=== PATIENT | female | born 1945 | race Caucasian/White ===

== ENCOUNTER 2017-06-04 06:58 | Inpatient (IN) | payer MEDICARE, BC, MEDICAID ==
[~2017-06-04 06:58] MED LIST: Bupivacaine 0.5%/EPINEPHrine 1:200,000 50 ML MDV ONE; Meropenem 500 MG SDV ONE
[2017-06-04] MEDS ORDERED: Acetaminophen 500 MG Tab PO ONE (07:00)
[2017-06-04] MEDS ORDERED: Rocuronium 50 MG/5 ML Vial ONE (07:01)
[2017-06-04] MEDS ORDERED: Propofol 200 MG/20 ML SDV ONE (07:01)
[2017-06-04] MEDS ORDERED: Succinylcholine/Normal Saline 200 MG/10 ML Syringe ONE (07:01)
[2017-06-04] MEDS ORDERED: Neostigmine Methylsulfate 1 MG/ML 5 ML Syringe ONE (07:01)
[2017-06-04] MEDS ORDERED: Dexamethasone 4 MG/ML SDV ONE (07:01)
[2017-06-04] MEDS ORDERED: Ondansetron 4 MG/2 ML SDV ONE (07:01)
[2017-06-04] MEDS ORDERED: fentaNYL 250 MCG/5 ML SDV ONE (07:02)
[2017-06-04] MEDS: Dextrose 5%-Lactated Ringers 1,000 ML IV SCH ×3 (07:57→18:48)
[2017-06-04] MEDS ORDERED: ROPIVACAINE NERVRT ONE ×3 (08:45)
[2017-06-04] MEDS ORDERED: Ketamine 500 MG/5 ML MDV IV ONE (08:45)
[2017-06-04] MEDS ORDERED: Lidocaine 2% 100 MG/5 ML Syringe IVPUSH ONE (08:45)
[2017-06-04] MEDS ORDERED: ceFAZolin 2 GM in Premix Bag 1 BAG IV ONE (08:45)
[2017-06-04] MEDS ORDERED: EPINEPHRINE NERVRT ONE ×3 (08:45)
[2017-06-04] MEDS ORDERED: SODIUM CHLORIDE 0.9% NERVRT ONE ×3 (08:45)
[2017-06-04] MEDS ORDERED: Meropenem 500 MG SDV IRR ONE (09:50)
[2017-06-04] MEDS ORDERED: fentaNYL 100 MCG/2 ML SDV ONE (10:38)
[2017-06-04] MEDS ORDERED: Naloxone 0.4 MG/ML SDV IVPUSH PRN (10:42)
[2017-06-04] MEDS ORDERED: HYDROmorphone/Normal Saline 15 MG/30 ML PCA IV PRN (10:42)
[2017-06-04] MEDS ORDERED: Naloxone 0.4 MG/ML SDV IV PRN (10:46)
[2017-06-04] MEDS ORDERED: hydrOXYzine HCl 100 MG/2 ML SDV IM ONE (11:13)
[2017-06-04] MEDS ORDERED: Insulin Aspart 100 Units/ML 3 ML Pen SUBCUT ONE (11:15)
[2017-06-04] MEDS: Lidocaine 0.4%/D5W 2 GM/500 ML BAG IV SCH (12:11)
[2017-06-04] MEDS ORDERED: 50% Dextrose in Water 50 ML Syringe IVPUSH PRN (12:32)
[2017-06-04] MEDS ORDERED: Glucagon,Human Recombinant 1 MG Vial IM PRN (12:32)
[2017-06-04] MEDS ORDERED: Glucose Gel 15 GM in 37.5 GM Tube PO PRN (12:32)
[2017-06-04] MEDS ORDERED: HYDROmorphone 2 MG Tab PO PRN (12:37)
[2017-06-04] MEDS ORDERED: Ondansetron 4 MG/2 ML SDV IV PRN (12:49)
[2017-06-04] MEDS: Acetaminophen 325 MG Tab PO SCH ×2 (16:43→21:44)
[2017-06-04] MEDS: ceFAZolin 2 GM in Sodium Chloride 0.9% 50 ML IV SCH (16:43)
[2017-06-04] MEDS: Insulin Aspart 100 Units/ML 3 ML Pen SUBCUT PRN (16:49)
[2017-06-04] MEDS ORDERED: Insulin Aspart 100 Units/ML 3 ML Pen SUBCUT STA (21:06)
[2017-06-04] MEDS: Insulin Detemir 100 Units/ML 3 ML Pen SUBCUT SCH (21:15)
[2017-06-05] MEDS: ceFAZolin 2 GM in Sodium Chloride 0.9% 50 ML IV SCH ×2 (00:57→08:38)
[2017-06-05] MEDS: Dextrose 5%-Lactated Ringers 1,000 ML IV SCH (00:57)
[2017-06-05] MEDS: Lidocaine 0.4%/D5W 2 GM/500 ML BAG IV SCH (00:59)
[2017-06-05] MEDS: Acetaminophen 325 MG Tab PO SCH ×4 (03:41→21:41)
[2017-06-05] MEDS ORDERED: Dextrose 5%-Lactated Ringers 1,000 ML IV SCH (07:45)
[2017-06-05] MEDS: Levothyroxine 100 MCG Tab PO SCH ×2 (08:39→11:50)
[2017-06-05] MEDS: Lisinopril 10 MG Tab PO SCH ×2 (08:39→11:50)
[2017-06-05] MEDS: Pantoprazole 40 MG Tab.CR PO SCH (08:40)
[2017-06-05] MEDS: Insulin Aspart 100 Units/ML 3 ML Pen SUBCUT PRN ×2 (16:35→21:37)
[2017-06-05] MEDS ORDERED: Levothyroxine 100 MCG Tab PO SCH (21:00)
[2017-06-05] MEDS ORDERED: Lisinopril 10 MG Tab PO SCH (21:00)
[2017-06-05] MEDS: Insulin Detemir 100 Units/ML 3 ML Pen SUBCUT SCH (21:38)
[2017-06-06] MEDS: Acetaminophen 325 MG Tab PO SCH ×2 (03:17→10:37)
[2017-06-06] MEDS: Pantoprazole 40 MG Tab.CR PO SCH (07:32)
[2017-06-06 08:09] VITALS: BP 107/31
--- NOTE | 2017-06-09 16:43 | DISCH ---
FINAL DIAGNOSES: 1. Incarcerated umbilical and incarcerated incisional hernias. 2. Extensive intraabdominal adhesions. 3. Type 2 diabetes mellitus. 4. History of arrhythmia, status post pacemaker placement. 5. Hypercholesterolemia. 6. Bariatric surgery status. 7. History of vitamin B deficiency. OPERATIVE PROCEDURE: This was done on 06/04/2017, laparoscopically repair of incarcerated umbilical and incarcerated incisional hernias with mesh and placement of Vicryl mesh to limit recurrent adhesion formation between pelvic and abdominal wall and underlying viscera. HOSPITAL COURSE: This is a 72-year-old female presenting with a fairly acute onset of umbilical hernia. She was quite symptomatic, and after preop evaluation, the patient wished to proceed with repair of this. This was done laparoscopically on the day of admission, did have some incarcerated omentum within it. There was also small incisional hernia related to her previous trocar sites which was also involved with some incarcerated omentum. Both these were repaired with a mesh-type technique via laparoscopic approach. The patient had quite in the way of other adhesions in the pelvis and lower and mid abdomen and given this, Vicryl mesh was placed underneath the new mesh as well as extending down to the pelvic area behind the urinary bladder along the pelvic sidewalls to limit recurrent adhesion formation which would make any subsequent laparotomies or laparoscopies the less likely to be involved with significant adhesions. Postoperatively, the patient did well. Her blood sugars were somewhat problematic but appeared to be stabilizing. The patient will be discharged home with her current medications plus Tylenol as needed for pain. She had received intraoperatively and has had little in the way of pain postoperatively, obviously not requiring any narcotics. The patient will be instructed to measure blood sugars 2 or 3 times a day and bring the log of that blood sugar list to the appointment. She will be following up with Dr. Pérez at [facility] on 06/16/2017 along with the certified lactation educator. At that time, we will see as we get further postoperatively whether or not her blood sugar control has been adequate and make adjustments at that time as needed.
--- NOTE | 2017-06-10 14:14 | PN ---
DATE OF SERVICE: 06/05/2017 The patient has been afebrile with stable vital signs. She has had little bit of pain control issues overnight, but I did start her on DBA MANAGER but has not received much in the way of that DBA MANAGER Dilaudid. The patient is obviously not quite ready to go home yet. She had a quite high blood sugar in night and we will have another one drawn at breakfast this morning. We will make some insulin adjustments as need be. Otherwise we will switch over to oral pain medication. Lidocaine will be scheduled to get off 10:00 am and will saline lock the IV after some oral intake is satisfactory. She will likely be ready for discharge home tomorrow. Prasanna Pérez MD /[id number]
--- NOTE | 2017-06-11 13:09 | OR ---
DATE OF PROCEDURE: 06/04/2017 PREOPERATIVE DIAGNOSIS: Incarcerated umbilical hernia. POSTOPERATIVE DIAGNOSES: 1. Incarcerated umbilical hernia. 2. Small incarcerated incisional hernia. 3. Extensive intra-abdominal adhesions. OPERATIVE PROCEDURES: Diagnostic laparoscopy with: 1. Repair of an incarcerated umbilical hernia with mesh (24186). 2. Repair of incarcerated incisional hernia with mesh ([id number]). 3. Placement of Vicryl mesh to displace viscera from pelvic and abdominal wall to limit recurrent adhesion formation ([id number]). ANESTHESIA: General. LINEN CLERK: Natalie Mayer PA-C. INDICATIONS FOR PROCEDURE: This is a 72-year-old presenting with a new onset of quite painful umbilical hernia. Plan is to proceed with diagnostic laparoscopy and repair as indicated. Potential risks including bleeding, infection, injury to underlying viscera, possible recurrence of the hernia as well as the mesh becoming infected were all gone over along with the remote possibility of cardiopulmonary, septic, or hemorrhagic complications leading to were discussed, and the patient wishes to proceed. DETAILS OF PROCEDURE: The patient was taken to the operating room and after general endotracheal anesthesia was induced, a Roberts catheter was inserted and the abdomen was prepped and draped. In the left lateral abdomen, a transverse incision was made. The peritoneal cavity entered under direct vision with Optiview trocar inflated to 15 mmHg pressure of CO2. Laparoscope was then reinserted. No underlying trocar insertion site injuries were seen. Following this, bilateral transverse abdominis plane blocks placed over the lateral mid abdomen with usual solution, and the needle tip being more or less visualized in the correct plane by direct endoscopic vision. Final trocars were then placed in the left lower quadrant and left upper quadrant. The patient was noted to have 2 hernias. The larger of these was the umbilical hernia. This contained some incarcerated omentum within it and adjacent older trocar site, there was also a smaller incisional hernia that had tongue of omentum incarcerated within it as well. Both these were reduced with a combination of external pressure and division of the tissues with Harmonic scalpel. Following this, then with some additional adhesions between the pelvic and abdominal wall and the underlying omentum and small bowel were taken down with a combination of sharp and Harmonic scalpel type dissection. Once this was completed, a 15 cm circular mesh was selected. It was the mesh with the balloon inflation technology, this was soaked in antibiotic-containing saline solution and placed into the abdominal location. Through the balloon inflation catheter, mesh was ballooned up as it was pulled up against the abdominal wall after its catheter had been brought out through a small stab wound just below the umbilicus. It was centered across the 2 hernias satisfactorily and was affixed circumferentially with absorbable tacking screws. The balloon was then deflated and removed leaving the mesh with what could be good coverage and good fixation circumferentially. To try to limit recurrent adhesion formation both to the mesh as well as certainly pelvic abdominal wall, otherwise, a 12-inch segment of Vicryl mesh was then draped underneath the mesh and from the abdominopelvic area behind the urinary bladder and along the pelvic sidewalls. At that point, the trocars were essentially removed. The fascia at the 12 mm camera port was closed with 0 Vicryl stitch and the skin at each incision 4-0 Vicryl skin stitch. Dressing was applied. The patient was taken to the recovery room in satisfactory condition. There were no evident complications. Physician asset protection assistant, Natalie Mayer, played an essential role in assisting in this case, helping to position the patient, retract structures as needed as well as suturing and cutting sutures when indicated. Her presence improved patient safety and decreased operative time. Prasanna Pérez MD /[id number]
== END 2017-06-06 11:05 | disposition home or self-care (01) | DRG 355 ==
LOC: JP.SDSSCHI 06:58 → JP.SDS 06:58 → JP.2SS 10:45 → EDSTATUS 11:00
PROVIDERS: ADMIT Surgery; ATTEND Surgery
PROC: 0WUF4JZ Supplement Abdominal Wall with Synthetic Substitute, Percutaneous Endoscopic Approach (ICD-10-PCS; principal; 2017-06-04)
PROC: 0WUF4JZ Supplement Abdominal Wall with Synthetic Substitute, Percutaneous Endoscopic Approach (ICD-10-PCS; 2017-06-04)
PROC: 3E0M45Z Introduction of Adhesion Barrier into Peritoneal Cavity, Percutaneous Endoscopic Approach (ICD-10-PCS; 2017-06-04)
PROC: 3E0T3BZ Introduction of Anesthetic Agent into Peripheral Nerves and Plexi, Percutaneous Approach (ICD-10-PCS; 2017-06-04)
DX: K42.0 Umbilical hernia with obstruction, without gangrene (principal); E11.9 Type 2 diabetes mellitus without complications; Z79.4 Long term (current) use of insulin; I10 Essential (primary) hypertension; G93.9 Disorder of brain, unspecified; D32.0 Benign neoplasm of cerebral meninges; M54.5 Low back pain; K43.0 Incisional hernia with obstruction, without gangrene
CPT/HCPCS: 82962; 88302; 94762; A9270-GY; C1781; J0171; J0690; J1100; J1170; J2001; J2185; J2405; J2704; J2795; J3010; J3410; J7030; J7042; J7050

== ENCOUNTER 2019-08-10 20:47 | Inpatient (IN) | payer MEDICARE, BC, MEDICAID, OTHER ==
--- NOTE | 2019-08-10 21:27 | EDM.PDOC ---
ED HPI GENERAL MEDICAL PROBLEM - General Chief Complaint: Gastrointestinal Problem Stated Complaint: MEDICAL Time Seen by Provider: 08/10/19 21:15 Source of Information: Reports: Patient History Limitations: Reports: No Limitations - History of Present Illness Onset: Other (5 days ago) Duration: Getting Worse Location: Reports: Generalized, Other (Total body aches) Quality: Reports: Ache Severity: Severe Improves with: Reports: None Worsens with: Reports: Movement Associated Symptoms: Reports: Fever/Chills, Nausea/Vomiting, Shortness of Breath , Weakness, Other (Diarrhea in the last day). Denies: Cough Treatments SAFETY ASSOCIATE: Reports: Acetaminophen - Related Data Allergies Allergy/AdvReac Type Severity Reaction Status Date / Time citric acid Allergy Unknown Hives Verified 08/10/19 21:05 aspirin Allergy Cannot Verified 08/10/19 21:05 Remember lactose Allergy Cannot Verified 08/10/19 21:05 Remember Home Meds: Home Meds Insulin Glarg,Human.Rec.Analog [Lantus] 30 unit SUBCUT BEDTIME 10/15/14 [History ] Levothyroxine [Synthroid] 100 mcg PO DAILY 10/15/14 [History] lisinopriL [Prinivil] 20 mg PO DAILY 10/15/14 [History] Cyanocobalamin (Vitamin B-12) [Vitamin B-12] 1,000 mcg SL DAILY 06/03/17 [ History] Omeprazole 20 mg PO DAILY 06/03/17 [History] Acetaminophen [Tylenol] 650 mg PO Q4H PRN 30 Days tablet 06/06/17 [Rx] Dulaglutide [Trulicity] 0.75 mg SQ WEEKLY 08/10/19 [History] Past Medical History HEENT History: Reports: Cataract, Impaired Vision Other HEENT History: 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 Cardiovascular History: Reports: Arrhythmia, Hypertension, Pacemaker Gastrointestinal History: Reports: Chronic Diarrhea, GERD Genitourinary History: Reports: Diabetic Nephropathy RECOVERY ANALYST History: Reports: , Spontaneous Musculoskeletal History: Reports: None Neurological History: Reports: Vertigo, Other (See Below) Other Neuro History: "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" Psychiatric History: Reports: Depression Endocrine/Metabolic History: Reports: Diabetes, Type II, Hypothyroidism, Obesity /BMI 30+, Vitamin D Deficiency Hematologic History: Reports: B12 Deficiency, Other (See Below) Other Hematologic History: magnesium Dermatologic History: Reports: Psoriasis - Infectious Disease History Infectious Disease History: Reports: Chicken Pox, Measles, Mumps - Past Surgical History Head Surgeries/Procedures: Reports: None HEENT Surgical History: Reports: Cataract Surgery, Oral Surgery Cardiovascular Surgical History: Reports: Pacer Other Cardiovascular Surgeries/Procedures: pacemaker placed GI Surgical History: Reports: Bariatric Procedure, Colonoscopy, Hernia, Abdominal Other GI Surgeries/Procedures: bariatric procedure 2006 Female Surgical History: Reports: Breast Biopsy, Tubal Ligation Endocrine Surgical History: Reports: None Neurological Surgical History: Reports: None Musculoskeletal Surgical History: Reports: Carpal Tunnel Dermatological Surgical History: Reports: Skin Biopsy Social & Family History - Family History Family Medical History: Noncontributory Cardiac: Reports: Heart Failure GI: Reports: Hepatitis Neurological: Reports: CVA Endocrine/Metabolic: Reports: Diabetes, Type I, Diabetes, type II, Hypothyroidism Oncologic: Reports: Skin - Tobacco Use Smoking Status *Q: Former Smoker Used Tobacco, but Quit: Yes Month/Year Tobacco Last Used: 1987 Second Hand Smoke Exposure: No - Caffeine Use Caffeine Use: Reports: Coffee - Recreational Drug Use Recreational Drug Use: No ED ROS GENERAL - Review of Systems Review Of Systems: See Below Constitutional: Reports: Fever, Chills, Malaise, Weakness, Fatigue, Decreased Appetite HEENT: Reports: No Symptoms Respiratory: Reports: Shortness of Breath. Denies: Wheezing, Cough Cardiovascular: Reports: Chest Pain (Patient states that she hurts all over and chest pain is just part of) Endocrine: Reports: Fatigue GI/Abdominal: Reports: Abdominal Pain, Diarrhea (Diarrhea just started yesterday.), Vomiting : Reports: Dysuria, Incontinence Musculoskeletal: Reports: Shoulder Pain, Back Pain, Joint Pain, Muscle Pain Skin: Denies: Rash Neurological: Reports: Headache, Difficulty Walking. Denies: Confusion Psychiatric: Reports: Anxiety ED EXAM, GI/ABD - Physical Exam Exam: See Below Exam Limited By: No Limitations Eyes: Right: Normal Appearance (Left eye markedly clouded and pupil nonreactive) Ears: Normal External Exam, Hearing Grossly Normal Nose: Normal Inspection Throat/Mouth: Other (Dry mucous membranes) Head: Atraumatic Neck: Normal Inspection Respiratory/Chest: Accessory Muscle Use, Other (Mild tachypnea). No: Crackles, Rales, Wheezing Cardiovascular: Regular Rate, Rhythm, No Edema GI/Abdominal Exam: No Organomegaly, Distended, Tender (Generalized tenderness), Abnormal Bowel Sounds (Infrequent bowel sounds) Back Exam: Normal Inspection. No: CVA Tenderness (R), CVA Tenderness (L) Extremities: Normal Inspection, No Pedal Edema, Normal Capillary Refill Neurological: Alert, Oriented Skin Exam: Warm, Dry. No: Rash Lymphatic: No Adenopathy EKG INTERPRETATION EKG Date: 08/10/19 Time: 21:29 Rhythm: NSR Rate (Beats/Min): 87 [place]: Normal P-Wave: Present QRS: Normal ST-T: Normal Course - Vital Signs Text/Narrative:: Initial differential diagnosis includes influenza, urinary tract infection, pneumonia, viral gastroenteritis. The patient's complaints are multiple and don' t seem to point to just one organ system. Influenza is negative urine does show presence of white cells and bacteria but not in large amounts. Chest x-ray shows retrocardiac infiltrate. During the emergency department stay the patient was noted to have a desaturation to 86% on room air. CBC indicates leukopenia and thrombocytopenia. BUN/creatinine indicate dehydration. Patient was administered 1 L of IV fluid, Rocephin and Dilaudid in the emergency department. I discussed patient with hospitalist at 2220. Last Recorded V/S: Last Vital Signs Temp 38.0 C 08/10/19 21:13 Pulse 86 08/10/19 21:13 Resp 16 08/10/19 21:13 BP 113/45 L 08/10/19 21:13 Pulse Ox 95 08/10/19 21:13 - Orders/Labs/Meds Orders: Active Orders 24 hr Category Date Time Status EKG Documentation Completion [RC] ASDIRECTED Care 08/10/19 21:24 Active Chest 2V [CR] Stat Exams 08/10/19 21:20 Taken MYOGLOBIN, SERUM Stat Lab 08/10/19 21:32 Received Sodium Chloride 0.9% [Normal Saline] 1,000 ml Med 08/10/19 21:30 Active IV ASDIRECTED Isolation [COMM] Routine Oth 08/10/19 21:22 Ordered EKG 12 Lead [EK] Urgent Ther 08/10/19 21:24 Ordered Medication Orders Sodium Chloride (Normal Saline) 1,000 mls @ 500 mls/hr IV ASDIRECTED CHEIKH Last Admin: 08/10/19 21:37 Dose: 500 mls/hr Labs: Laboratory Tests 08/10/19 08/10/19 08/10/19 Range/Units 21:25 21:25 21:25 WBC 3.7 L (4.5-11.0) K/uL RBC 4.21 (3.30-5.50) M/uL Hgb 11.8 L (12.0-15.0) g/dL Hct 37.2 (36.0-48.0) % MCV 88 (80-98) fL MCH 28 (27-31) pg MCHC 32 (32-36) % Plt Count 78 L (150-400) K/uL Sodium 133 L (140-148) mmol/L Potassium 3.4 L (3.6-5.2) mmol/L Chloride 101 (100-108) mmol/L Carbon Dioxide 19 L (21-32) mmol/L Anion Gap 16.4 H (5.0-14.0) mmol/L BUN 45 H (7-18) mg/dL Creatinine 1.8 H (0.6-1.0) mg/dL Est Cr Clr Drug Dosing 24.04 mL/min Estimated GFR (MDRD) 28 L (>60) Glucose 127 H (74-106) mg/dL Lactic Acid 1.9 (0.4-2.0) mmol/L Calcium 8.3 L (8.5-10.1) mg/dL Total Bilirubin 0.7 D (0.2-1.0) mg/dL AST 59 H (15-37) U/L ALT 50 (12-78) U/L Alkaline Phosphatase 90 (46-116) U/L Troponin I (0.000-0.056) ng/mL Total Protein 6.4 (6.4-8.2) g/dL Albumin 2.7 L (3.4-5.0) g/dL Globulin 3.7 H (2.3-3.5) g/dL Albumin/Globulin Ratio 0.7 L (1.2-2.2) Urine Color (YELLOW) Urine Appearance (CLEAR) Urine pH (5.0-8.0) Ur Specific [place] (1.008-1.030) Urine Protein (NEGATIVE) mg/dL Urine Glucose (UA) (NEGATIVE) mg/dL Urine Ketones (NEGATIVE) mg/dL Urine Occult Blood (NEGATIVE) Urine Nitrite (NEGATIVE) Urine Bilirubin (NEGATIVE) Urine Urobilinogen (0.2-1.0) EU/dL Ur Leukocyte Esterase (NEGATIVE) Urine RBC (0-5) Urine WBC (0-5) Ur Epithelial Cells Amorphous Sediment Urine Bacteria Urine Mucus 08/10/19 08/10/19 Range/Units 21:25 21:35 WBC (4.5-11.0) K/uL RBC (3.30-5.50) M/uL Hgb (12.0-15.0) g/dL Hct (36.0-48.0) % MCV (80-98) fL MCH (27-31) pg MCHC (32-36) % Plt Count (150-400) K/uL Sodium (140-148) mmol/L Potassium (3.6-5.2) mmol/L Chloride (100-108) mmol/L Carbon Dioxide (21-32) mmol/L Anion Gap (5.0-14.0) mmol/L BUN (7-18) mg/dL Creatinine (0.6-1.0) mg/dL Est Cr Clr Drug Dosing mL/min Estimated GFR (MDRD) (>60) Glucose (74-106) mg/dL Lactic Acid (0.4-2.0) mmol/L Calcium (8.5-10.1) mg/dL Total Bilirubin (0.2-1.0) mg/dL AST (15-37) U/L ALT (12-78) U/L Alkaline Phosphatase (46-116) U/L Troponin I 0.025 (0.000-0.056) ng/mL Total Protein (6.4-8.2) g/dL Albumin (3.4-5.0) g/dL Globulin (2.3-3.5) g/dL Albumin/Globulin Ratio (1.2-2.2) Urine Color Yellow (YELLOW) Urine Appearance Slightly cloudy A (CLEAR) Urine pH 5.5 (5.0-8.0) Ur Specific [place] 1.020 (1.008-1.030) Urine Protein 30 H (NEGATIVE) mg/dL Urine Glucose (UA) Negative (NEGATIVE) mg/dL Urine Ketones Negative (NEGATIVE) mg/dL Urine Occult Blood Trace-intact H (NEGATIVE) Urine Nitrite Negative (NEGATIVE) Urine Bilirubin Small H (NEGATIVE) Urine Urobilinogen 1.0 (0.2-1.0) EU/dL Ur Leukocyte Esterase Negative (NEGATIVE) Urine RBC 0-5 (0-5) Urine WBC 0-5 (0-5) Ur Epithelial Cells Few Amorphous Sediment Many Urine Bacteria Few Urine Mucus Few Meds: Medications Generic Name Dose Route Start Last Admin Trade Name Michelle PRN Reason Stop Dose Admin Sodium Chloride 1,000 mls @ 500 mls/hr 08/10/19 21:30 08/10/19 21:37 Normal Saline IV 500 mls/hr ASDIRECTED CHEIKH Administration Discontinued Medications Generic Name Dose Route Start Last Admin Trade Name Michelle PRN Reason Stop Dose Admin Hydromorphone HCl 0.5 mg 08/10/19 21:28 08/10/19 21:35 Dilaudid IVPUSH 08/10/19 21:29 0.5 mg ONETIME ONE Administration Departure - Departure Time of Disposition: 22:30 Disposition: Admitted As Inpatient 67 Clinical Impression: Diarrhea, Dehydration, Pneumonia - Discharge Information Referrals: Homer Jansen MD [Primary Care Provider] - Forms: ED Department Discharge Sepsis Event Note - Evaluation Sepsis Screening Result: No Definite Risk - Focused Exam Vital Signs: Vital Signs Temp Pulse Resp BP Pulse Ox 08/10/19 21:13 38.0 C 86 16 113/45 L 95 08/10/19 21:08 38.0 C 86 16 113/45 L 95 Date Exam was Performed: 08/10/19 Time Exam was Performed: 22:15 - My Orders Last 24 Hours: My Active Orders 08/10/19 21:20 Chest 2V [CR] Stat 08/10/19 21:22 Isolation [COMM] Routine 08/10/19 21:24 EKG Documentation Completion [RC] ASDIRECTED EKG 12 Lead [EK] Urgent 08/10/19 21:30 Sodium Chloride 0.9% [Normal Saline] 1,000 ml IV ASDIRECTED 08/10/19 21:32 MYOGLOBIN, SERUM Stat - Assessment/Plan Last 24 Hours: My Active Orders 08/10/19 21:20 Chest 2V [CR] Stat 08/10/19 21:22 Isolation [COMM] Routine 08/10/19 21:24 EKG Documentation Completion [RC] ASDIRECTED EKG 12 Lead [EK] Urgent 08/10/19 21:30 Sodium Chloride 0.9% [Normal Saline] 1,000 ml IV ASDIRECTED 08/10/19 21:32 MYOGLOBIN, SERUM Stat
[2019-08-10] MEDS ORDERED: HYDROmorphone 0.5 MG/0.5 ML Syringe IVPUSH ONE (21:28)
[2019-08-10] MEDS: Sodium Chloride 0.9% 1,000 ML IV SCH (21:37)
[2019-08-10] MEDS ORDERED: cefTRIAXone 2 GM in Sodium Chloride 0.9% 50 ML IV ONE (22:26)
--- NOTE | 2019-08-10 23:34 | PCM.HP.2 ---
H&P History of Present Illness - General Date of Service: 08/10/19 Admit Problem/Dx: Admission Diagnosis/Problem Admission Diagnosis/Problem Pneumonia Source of Information: Patient, Provider, RN History Limitations: Reports: No Limitations - History of Present Illness Initial Comments - Free Text/Narative: chief complaint: fever, chills. This is a 74 year old female present to the ER for concerns of illness for the past 5 days. reports fever, chills, severe body aches, weakness, nausea, dry heaves and diarrhea. She is able to drink fluids but no solid food for two days. Reports her , Sons and Grandson are all long distance Truckers. They have been to multi areas out [place] including [facility]. They are all well. She has not been traveling but did go to [place] 2 or 3 weeks ago. ER workup: Initial differential diagnosis includes influenza, urinary tract infection, pneumonia, viral gastroenteritis. The patient's complaints are multiple and don' t seem to point to just one organ system. Influenza is negative urine does show presence of white cells and bacteria but not in large amounts. Chest x-ray shows retrocardiac infiltrate. During the emergency department stay the patient was noted to have a desaturation to 86% on room air. CBC indicates leukopenia and thrombocytopenia. BUN/creatinine indicate dehydration. Patient was administered 1 L of IV fluid, Rocephin and Dilaudid in the emergency department. I discussed patient with hospitalist at 2220. Last Recorded V/S: Onset of Symptoms: Reports: Gradual Symptom Onset Date: 08/07/19 Duration of Symptoms: Reports: Getting Worse Location: Reports: Generalized Quality: Reports: Ache Severity: Severe Improves with: Reports: None Worsens with: Reports: None Context: Reports: Other (Exposure to family members who have been traveling out of state.) Associated Symptoms: Reports: Fever/Chills (x 5 days), Headaches (x 5 days), Loss of Appetite (x5 days), Malaise (x5 days), Nausea/Vomiting (able to tolerate fluids. no solid food x 2 days.), Shortness of Breath, Weakness, Other (diarrhea x 2 days) - Related Data Allergies/Adverse Reactions: Allergies Allergy/AdvReac Type Severity Reaction Status Date / Time citric acid Allergy Unknown Hives Verified 08/10/19 21:05 aspirin Allergy Cannot Verified 08/10/19 21:05 Remember lactose Allergy Cannot Verified 08/10/19 21:05 Remember Home Medications: Home Meds Insulin Glarg,Human.Rec.Analog [Lantus] 30 unit SUBCUT BEDTIME 10/15/14 [History ] Levothyroxine [Synthroid] 100 mcg PO DAILY 10/15/14 [History] lisinopriL [Prinivil] 20 mg PO DAILY 10/15/14 [History] Cyanocobalamin (Vitamin B-12) [Vitamin B-12] 1,000 mcg SL DAILY 06/03/17 [ History] Omeprazole 20 mg PO DAILY 06/03/17 [History] Acetaminophen [Tylenol] 650 mg PO Q4H PRN 30 Days tablet 06/06/17 [Rx] Dulaglutide [Trulicity] 0.75 mg SQ WEEKLY 08/10/19 [History] Past Medical History HEENT History: Reports: Cataract, Impaired Vision Other HEENT History: 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 Cardiovascular History: Reports: Arrhythmia, Hypertension, Pacemaker Gastrointestinal History: Reports: Chronic Diarrhea, GERD Genitourinary History: Reports: Diabetic Nephropathy [employer]ER History: Reports: , Spontaneous Musculoskeletal History: Reports: None Neurological History: Reports: Vertigo, Other (See Below) Other Neuro History: "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" Psychiatric History: Reports: Depression Endocrine/Metabolic History: Reports: Diabetes, Type II, Hypothyroidism, Obesity /BMI 30+, Vitamin D Deficiency Hematologic History: Reports: B12 Deficiency, Other (See Below) Other Hematologic History: magnesium Dermatologic History: Reports: Psoriasis - Infectious Disease History Infectious Disease History: Reports: Chicken Pox, Measles, Mumps - Past Surgical History Head Surgeries/Procedures: Reports: None HEENT Surgical History: Reports: Cataract Surgery, Oral Surgery Cardiovascular Surgical History: Reports: Pacer Other Cardiovascular Surgeries/Procedures: pacemaker placed GI Surgical History: Reports: Bariatric Procedure, Colonoscopy, Hernia, Abdominal Other GI Surgeries/Procedures: bariatric procedure 2006 Female Surgical History: Reports: Breast Biopsy, Tubal Ligation Endocrine Surgical History: Reports: None Neurological Surgical History: Reports: None Musculoskeletal Surgical History: Reports: Carpal Tunnel Dermatological Surgical History: Reports: Skin Biopsy Social & Family History - Family History Family Medical History: Noncontributory Cardiac: Reports: Heart Failure GI: Reports: Hepatitis Neurological: Reports: CVA Endocrine/Metabolic: Reports: Diabetes, Type I, Diabetes, type II, Hypothyroidism Oncologic: Reports: Skin - Tobacco Use Smoking Status *Q: Former Smoker Used Tobacco, but Quit: Yes Month/Year Tobacco Last Used: 1987 Second Hand Smoke Exposure: No - Caffeine Use Caffeine Use: Reports: Coffee - Recreational Drug Use Recreational Drug Use: No - Living Situation & Occupation Living situation: Reports: (lives with her , Sons and Grandson in [address].) H&P Review of Systems - Review of Systems: Review Of Systems: See Below General: Reports: Fever, Chills, Malaise, Weakness, Fatigue, Decreased Appetite HEENT: Reports: Glasses, Other (dentures) Pulmonary: Reports: Shortness of Breath Cardiovascular: Reports: Dyspnea on Exertion, Lightheadedness Gastrointestinal: Reports: Diarrhea (x2 days), Decreased Appetite, Nausea, Vomiting (reports dry heaves.) Genitourinary: Reports: No Symptoms Musculoskeletal: Reports: Muscle Pain Skin: Reports: No Symptoms Psychiatric: Reports: No Symptoms Neurological: Reports: Headache, Weakness Hematologic/Lymphatic: Reports: No Symptoms Immunologic: Reports: No Symptoms Exam - Exam Exam: See Below - Vital Signs Vital Signs: Last Vital Signs Temp 38.0 C 08/10/19 21:13 Pulse 83 08/10/19 22:47 Resp 21 H 08/10/19 22:47 BP 86/40 L 08/10/19 22:47 Pulse Ox 96 08/10/19 22:47 Weight: 83.915 kg - Exam Quality Assessment: Supplemental Oxygen, DVT Prophylaxis General: Alert, Oriented, Cooperative, Moderate Distress HEENT: PERRLA, Conjunctiva Clear, EOMI, Hearing Intact Neck: Supple, Trachea Midline Lungs: Clear to Auscultation, Decreased Breath Sounds Cardiovascular: Regular Rate, Regular Rhythm, Normal S1, Normal S2 GI/Abdominal Exam: Normal Bowel Sounds, Soft, Non-Tender, No Distention (Female) Exam: Deferred Rectal (Female) Exam: Deferred Back Exam: Normal Inspection, Full Range of Motion Extremities: Normal Inspection, Normal Range of Motion, Non-Tender, No Pedal Edema, Normal Capillary Refill Peripheral Pulses: 2+: Radial (L), Radial (R) Skin: Warm, Dry, Intact Neurological: Strength Equal Bilateral Neuro Extensive - Mental Status: Alert, Oriented x3, Normal Mood/Affect, Normal Cognition Neuro Extensive - Motor, Sensory, Reflexes: CN II-XII Intact Psychiatric: Alert, Normal Affect, Normal Mood - Patient Data Lab Results Last 24 hrs: Laboratory Results - last 24 hr 08/10/19 08/10/19 08/10/19 Range/Units 21:25 21:25 21:25 WBC 3.7 L (4.5-11.0) K/uL RBC 4.21 (3.30-5.50) M/uL Hgb 11.8 L (12.0-15.0) g/dL Hct 37.2 (36.0-48.0) % MCV 88 (80-98) fL MCH 28 (27-31) pg MCHC 32 (32-36) % Plt Count 78 L (150-400) K/uL Sodium 133 L (140-148) mmol/L Potassium 3.4 L (3.6-5.2) mmol/L Chloride 101 (100-108) mmol/L Carbon Dioxide 19 L (21-32) mmol/L Anion Gap 16.4 H (5.0-14.0) mmol/L BUN 45 H (7-18) mg/dL Creatinine 1.8 H (0.6-1.0) mg/dL Est Cr Clr Drug Dosing 24.04 mL/min Estimated GFR (MDRD) 28 L (>60) Glucose 127 H (74-106) mg/dL Lactic Acid 1.9 (0.4-2.0) mmol/L Calcium 8.3 L (8.5-10.1) mg/dL Total Bilirubin 0.7 D (0.2-1.0) mg/dL AST 59 H (15-37) U/L ALT 50 (12-78) U/L Alkaline Phosphatase 90 (46-116) U/L Troponin I (0.000-0.056) ng/mL Total Protein 6.4 (6.4-8.2) g/dL Albumin 2.7 L (3.4-5.0) g/dL Globulin 3.7 H (2.3-3.5) g/dL Albumin/Globulin Ratio 0.7 L (1.2-2.2) Urine Color (YELLOW) Urine Appearance (CLEAR) Urine pH (5.0-8.0) Ur Specific [place] (1.008-1.030) Urine Protein (NEGATIVE) mg/dL Urine Glucose (UA) (NEGATIVE) mg/dL Urine Ketones (NEGATIVE) mg/dL Urine Occult Blood (NEGATIVE) Urine Nitrite (NEGATIVE) Urine Bilirubin (NEGATIVE) Urine Urobilinogen (0.2-1.0) EU/dL Ur Leukocyte Esterase (NEGATIVE) Urine RBC (0-5) Urine WBC (0-5) Ur Epithelial Cells Amorphous Sediment Urine Bacteria Urine Mucus 08/10/19 08/10/19 Range/Units 21:25 21:35 WBC (4.5-11.0) K/uL RBC (3.30-5.50) M/uL Hgb (12.0-15.0) g/dL Hct (36.0-48.0) % MCV (80-98) fL MCH (27-31) pg MCHC (32-36) % Plt Count (150-400) K/uL Sodium (140-148) mmol/L Potassium (3.6-5.2) mmol/L Chloride (100-108) mmol/L Carbon Dioxide (21-32) mmol/L Anion Gap (5.0-14.0) mmol/L BUN (7-18) mg/dL Creatinine (0.6-1.0) mg/dL Est Cr Clr Drug Dosing mL/min Estimated GFR (MDRD) (>60) Glucose (74-106) mg/dL Lactic Acid (0.4-2.0) mmol/L Calcium (8.5-10.1) mg/dL Total Bilirubin (0.2-1.0) mg/dL AST (15-37) U/L ALT (12-78) U/L Alkaline Phosphatase (46-116) U/L Troponin I 0.025 (0.000-0.056) ng/mL Total Protein (6.4-8.2) g/dL Albumin (3.4-5.0) g/dL Globulin (2.3-3.5) g/dL Albumin/Globulin Ratio (1.2-2.2) Urine Color Yellow (YELLOW) Urine Appearance Slightly cloudy A (CLEAR) Urine pH 5.5 (5.0-8.0) Ur Specific [place] 1.020 (1.008-1.030) Urine Protein 30 H (NEGATIVE) mg/dL Urine Glucose (UA) Negative (NEGATIVE) mg/dL Urine Ketones Negative (NEGATIVE) mg/dL Urine Occult Blood Trace-intact H (NEGATIVE) Urine Nitrite Negative (NEGATIVE) Urine Bilirubin Small H (NEGATIVE) Urine Urobilinogen 1.0 (0.2-1.0) EU/dL Ur Leukocyte Esterase Negative (NEGATIVE) Urine RBC 0-5 (0-5) Urine WBC 0-5 (0-5) Ur Epithelial Cells Few Amorphous Sediment Many Urine Bacteria Few Urine Mucus Few Result Diagrams: 08/10/19 21:25 08/10/19 21:25 Srinivasan Results Last 24 hrs: Microbiology 08/10/19 21:30 Influenza Type A Antigen Screen - Final Nasal, Unspecified NEGATIVE INFLUENZA A VIRUS AG REFERENCE RANGE: NEGATIVE Influenza Type B Antigen Screen - Final NEGATIVE INFLUENZA B VIRUS AG REFERENCE RANGE: NEGATIVE Sepsis Event Note - Evaluation Sepsis Screening Result: No Definite Risk - Focused Exam Vital Signs: Vital Signs Temp Pulse Resp BP Pulse Ox 08/10/19 22:47 83 21 H 86/40 L 96 08/10/19 22:21 82 24 H 90/44 L 95 08/10/19 21:13 38.0 C 86 16 113/45 L 95 08/10/19 21:08 38.0 C 86 16 113/45 L 95 Date Exam was Performed: 08/11/19 Time Exam was Performed: 00:33 - Problem List (1) Pneumonia SNOMED Code(s): 926155440 ICD Code: J18.9 - PNEUMONIA, UNSPECIFIED ORGANISM Status: Acute Priority : High Current Visit: Yes Qualifiers: Pneumonia type: due to unspecified organism Laterality: unspecified laterality Lung location: unspecified part of lung Qualified Code(s): J18.9 - Pneumonia, unspecified organism (2) Diabetes SNOMED Code(s): 39056672 ICD Code: E11.9 - TYPE 2 DIABETES MELLITUS WITHOUT COMPLICATIONS Status: Acute Priority: Medium Current Visit: Yes Qualifiers: Diabetes mellitus type: type 2 Diabetes mellitus manager long term care insulin use: with manager long term care use (3) Dehydration SNOMED Code(s): 72762547 ICD Code: E86.0 - DEHYDRATION Status: Acute Priority: High Current Visit: Yes Problem List Initiated/Reviewed/Updated: Yes Orders Last 24hrs: Active Orders 24 hr Category Date Time Status Patient Status Manage Transfer [TRANSFER] Routine ADT 08/10/19 23:16 Ordered EKG Documentation Completion [RC] ASDIRECTED Care 08/10/19 21:24 Active Chest 2V [CR] Stat Exams 08/10/19 21:20 Taken C-REACTIVE PROTEIN [CHEM] Stat Lab 08/10/19 23:11 Ordered CALCITONIN, SERUM Stat Lab 08/10/19 23:11 Ordered CULTURE BLOOD [BC] Urgent Lab 08/10/19 22:19 Received CULTURE BLOOD [BC] Urgent Lab 08/10/19 22:45 Received LACTATE DEHYDROGENASE,LDH [CHEM] Stat Lab 08/10/19 23:11 Ordered MISCELLANEOUS REFERENCE TEST Routine Lab 08/10/19 22:49 Received MYOGLOBIN, SERUM Stat Lab 08/10/19 21:32 Received PROCALCITONIN [CHEM] Stat Lab 08/10/19 23:11 Ordered Sodium Chloride 0.9% [Normal Saline] 1,000 ml Med 08/10/19 21:30 Active IV ASDIRECTED Blood Culture x2 Reflex Set [OM.PC] Urgent Oth 08/10/19 22:18 Ordered Isolation [COMM] Routine Oth 08/10/19 21:22 Ordered Isolation [COMM] Routine Oth 08/10/19 22:35 Ordered Resuscitation Status Routine Resus Stat 08/10/19 23:17 Ordered EKG 12 Lead [EK] Urgent Ther 08/10/19 21:24 Ordered Medication Orders Sodium Chloride (Normal Saline) 1,000 mls @ 500 mls/hr IV ASDIRECTED CHEIKH Last Admin: 08/10/19 21:37 Dose: 500 mls/hr Assessment/Plan Comment:: Assessment/Plan Comment:: ASSESSMENT AND PLAN OF CARE; weakness This is a 74 year old female present to the ER for concerns of illness for the past 5 days. reports fever, chills, severe body aches, weakness, nausea, dry heaves and diarrhea. She is able to drink fluids but no solid food for two days. Reports her , Sons and Grandson are all long distance Truckers. They have been to multi areas out [place] including [facility]. They are all well. She has not been traveling but did go to [place] 2 or 3 weeks ago. ER workup: Initial differential diagnosis includes influenza, urinary tract infection, pneumonia, viral gastroenteritis. The patient's complaints are multiple and don' t seem to point to just one organ system. Influenza is negative urine does show presence of white cells and bacteria but not in large amounts. Chest x-ray shows retrocardiac infiltrate. During the emergency department stay the patient was noted to have a desaturation to 86% on room air. CBC indicates leukopenia and thrombocytopenia. BUN/creatinine indicate dehydration. Patient was administered 1 L of IV fluid, Rocephin and Dilaudid in the emergency department. I discussed patient with hospitalist at 2220. Last Recorded V/S: 38.0-83-21 Blood pressure 86/40 oxygen sat. 96% NC 1 liter Pneumonia with sepsis: ER workup shows WBC 3.7, hgb 11.8 hct 37.2 plt 78, Chemistry Na+ 133. K+ 3.4, anion gap 16.4, BUN 45, Cr 1.8, GFR 28, glucose 127, CRP. 12.92, Procalcitonin 7.61, LDH 261 negative influenza A&B, blood cultures X2 pending. Covid 19 testing completed-pending results Medication given Rocephin 2 gram in ER. -Admit to [address] [place] [address] for further monitoring- consulted with Internal Medicine Hospitalist for direction of care. -Droplet precautions -IV Normal Saline fluid bolus 1 liter, 2nd liter ordered at 999ml/hr, then 3rd liter at 500ml/hr x 500 ml then rate at 125ml/hr. -IV Antibiotic; Rocephin 2 gram IV given in ER then 1 gram IV every 24 hours -IV Zithromax 500mg every 24 hours -oxygen to keep saturations greater than 95% -No steroids at this time -No nebulizer treatments at this time. -Advise to notify nurses of any chest pain or other symptoms -blood cultures x2 pending -And a.m. labs: CBC, BMP Diabetes Type 2 - does not take her blood glucose but does take her insulin and medication daily as directed. -Insulin long acting Lantus 30 units subcut -Insulin short acting low dose sliding scale coverage -Blood glucose testing before meals and at bedtime Maintenance issues -Orders home meds: chronic medication -Nutrition: consistent carb diet -Roberts catheter -not indicated at this time -DVT: SCD -PPI; IV Protonix 40mg daily-give first dose tonight CODE STATUS: FULL Admission status: Admit to [address] [place] [address] Admission justification. This patient will be admitted for inpatient services and is medically appropriate meeting medical necessity for inpatient admission as outlined in my documentation. I reasonably expect the patient will require inpatient services that span. Time over 2 midnights. I reasonably expect this patient to be discharged or transferred within 96 hours after admission to the critical access hospital. Disposition: home with Family Primary care provider: Dr. Jansen, [facility] Hospitalist: Dr. Garcia - Mortality Measure Prognosis:: Good
[2019-08-10] MEDS ORDERED: Sodium Chloride 0.9% 1,000 ML IV SCH (23:45)
[2019-08-11] MEDS ORDERED: LORazepam 2 MG/ML SDV IV PRN (00:25)
[2019-08-11] MEDS ORDERED: Ondansetron 4 MG/2 ML SDV IV PRN (00:25)
[2019-08-11] MEDS ORDERED: Pantoprazole 40 MG Vial IVPUSH SCH ×2 (00:25→17:00)
[2019-08-11] MEDS ORDERED: Sodium Chloride 0.9% 1,000 ML IV SCH (00:25)
[2019-08-11] MEDS ORDERED: Azithromycin 500 MG in Sodium Chloride 0.9% 250 ML IV SCH ×2 (00:25→23:00)
[2019-08-11] MEDS ORDERED: HYDROmorphone 0.5 MG/0.5 ML Syringe IVPUSH PRN (00:25)
[2019-08-11] MEDS ORDERED: Ondansetron 4 MG Tab.DIS PO PRN (00:25)
[2019-08-11] MEDS: Sodium Chloride 0.9% 1,000 ML IV SCH (00:38)
[2019-08-11] MEDS: Insulin Lispro 100 Unit/ML 3 ML KwikPen SUBCUT SCH ×4 (07:43→20:58)
[2019-08-11] MEDS: Levothyroxine 100 MCG Tab PO SCH (07:44)
[2019-08-11] MEDS: Potassium Chloride 20 MEQ, Lidocaine 1% 2 ML in Sodium Chloride 0.9% 100 ML IV SCH ×2 (07:44→13:22)
[2019-08-11] MEDS: Cyanocobalamin (Vitamin B12) 1,000 MCG Tab SL SCH (08:03)
[2019-08-11] MEDS ORDERED: Levothyroxine 100 MCG Tab PO SCH (09:00)
[2019-08-11] MEDS ORDERED: Lisinopril 20 MG Tab PO SCH (09:00)
[2019-08-11] MEDS: Acetaminophen 325 MG Tab PO PRN (09:12)
[2019-08-11] MEDS ORDERED: Sodium Chloride 0.9% 1,000 ML IV ONE (09:20)
[2019-08-11] MEDS ORDERED: Magnesium Sulfate/Water 2 GM in Premix Bag 1 BAG IV SCH (10:00)
[2019-08-11] MEDS ORDERED: Levofloxacin/Dextrose 5%-Water 750 MG in Premix Bag 1 BAG IV SCH (10:00)
--- NOTE | 2019-08-11 10:05 | CR ---
CHEST: 2 view CLINICAL HISTORY:SOB COMPARISON:None FINDINGS: Heart size upper limits of normal. There is a right cardiac pacer. There is a calcified mitral valve annulus. There is some patchy density in the retrocardiac region which may represent minimal infiltrate. IMPRESSION: Possible mall left lower lobe pneumonic infiltrate. Clinical correlation necessary. If clinically relevant, short-term repeat recommended
--- NOTE | 2019-08-11 11:30 | PCM.PN ---
- General Info Date of Service: 08/11/19 Subjective Update: Overnight the patient has had difficulty with persistent hypotension despite fluid resuscitation. She has had copious diarrhea. She reports moderate left- sided abdominal pain but also pain all over her abdomen. She has nausea but has not vomited. She did eat some breakfast. She has had several episodes of rigors. She is not coughing and does not feel short of breath. She is not currently hypoxic. Functional Status: Denies: Pain Controlled - Review of Systems General: Reports: Fever, Other (rigors) Gastrointestinal: Reports: Abdominal Pain, Diarrhea - Patient Data Vitals - Most Recent: Last Vital Signs Temp 37.2 C 08/11/19 10:51 Pulse 91 08/11/19 10:51 Resp 18 08/11/19 10:51 BP 88/27 L 08/11/19 10:51 Pulse Ox 96 08/11/19 10:51 Weight - Most Recent: 83.915 kg I&O - Last 24 Hours: Intake & Output 08/10/19 08/11/19 08/11/19 22:59 06:59 14:59 Intake Total 1700 Balance 1700 Lab Results Last 24 Hours: Laboratory Results - last 24 hr 08/10/19 08/10/19 08/10/19 Range/Units 21:25 21:25 21:25 WBC 3.7 L (4.5-11.0) K/uL RBC 4.21 (3.30-5.50) M/uL Hgb 11.8 L (12.0-15.0) g/dL Hct 37.2 (36.0-48.0) % MCV 88 (80-98) fL MCH 28 (27-31) pg MCHC 32 (32-36) % Plt Count 78 L (150-400) K/uL Neut % (Auto) (36-66) % Lymph % (Auto) (24-44) % [place] % (Auto) (2-6) % Eos % (Auto) (2-4) % Baso % (Auto) (0-1) % Sodium 133 L (140-148) mmol/L Potassium 3.4 L (3.6-5.2) mmol/L Chloride 101 (100-108) mmol/L Carbon Dioxide 19 L (21-32) mmol/L Anion Gap 16.4 H (5.0-14.0) mmol/L BUN 45 H (7-18) mg/dL Creatinine 1.8 H (0.6-1.0) mg/dL Est Cr Clr Drug Dosing 24.04 mL/min Estimated GFR (MDRD) 28 L (>60) Glucose 127 H (74-106) mg/dL Lactic Acid 1.9 (0.4-2.0) mmol/L Calcium 8.3 L (8.5-10.1) mg/dL Magnesium (1.8-2.4) mg/dL Total Bilirubin 0.7 D (0.2-1.0) mg/dL AST 59 H (15-37) U/L ALT 50 (12-78) U/L Alkaline Phosphatase 90 (46-116) U/L Lactate Dehydrogenase (82-234) U/L Troponin I (0.000-0.056) ng/mL C-Reactive Protein (0.0-0.3) mg/dL Total Protein 6.4 (6.4-8.2) g/dL Albumin 2.7 L (3.4-5.0) g/dL Globulin 3.7 H (2.3-3.5) g/dL Albumin/Globulin Ratio 0.7 L (1.2-2.2) Procalcitonin ng/mL Urine Color (YELLOW) Urine Appearance (CLEAR) Urine pH (5.0-8.0) Ur Specific [place] (1.008-1.030) Urine Protein (NEGATIVE) mg/dL Urine Glucose (UA) (NEGATIVE) mg/dL Urine Ketones (NEGATIVE) mg/dL Urine Occult Blood (NEGATIVE) Urine Nitrite (NEGATIVE) Urine Bilirubin (NEGATIVE) Urine Urobilinogen (0.2-1.0) EU/dL Ur Leukocyte Esterase (NEGATIVE) Urine RBC (0-5) Urine WBC (0-5) Ur Epithelial Cells Amorphous Sediment Urine Bacteria Urine Mucus 08/10/19 08/10/19 08/10/19 Range/Units 21:25 21:35 22:30 WBC (4.5-11.0) K/uL RBC (3.30-5.50) M/uL Hgb (12.0-15.0) g/dL Hct (36.0-48.0) % MCV (80-98) fL MCH (27-31) pg MCHC (32-36) % Plt Count (150-400) K/uL Neut % (Auto) (36-66) % Lymph % (Auto) (24-44) % [place] % (Auto) (2-6) % Eos % (Auto) (2-4) % Baso % (Auto) (0-1) % Sodium (140-148) mmol/L Potassium (3.6-5.2) mmol/L Chloride (100-108) mmol/L Carbon Dioxide (21-32) mmol/L Anion Gap (5.0-14.0) mmol/L BUN (7-18) mg/dL Creatinine (0.6-1.0) mg/dL Est Cr Clr Drug Dosing mL/min Estimated GFR (MDRD) (>60) Glucose (74-106) mg/dL Lactic Acid (0.4-2.0) mmol/L Calcium (8.5-10.1) mg/dL Magnesium (1.8-2.4) mg/dL Total Bilirubin (0.2-1.0) mg/dL AST (15-37) U/L ALT (12-78) U/L Alkaline Phosphatase (46-116) U/L Lactate Dehydrogenase 261 H (82-234) U/L Troponin I 0.025 (0.000-0.056) ng/mL C-Reactive Protein 12.92 H (0.0-0.3) mg/dL Total Protein (6.4-8.2) g/dL Albumin (3.4-5.0) g/dL Globulin (2.3-3.5) g/dL Albumin/Globulin Ratio (1.2-2.2) Procalcitonin ng/mL Urine Color Yellow (YELLOW) Urine Appearance Slightly cloudy A (CLEAR) Urine pH 5.5 (5.0-8.0) Ur Specific [place] 1.020 (1.008-1.030) Urine Protein 30 H (NEGATIVE) mg/dL Urine Glucose (UA) Negative (NEGATIVE) mg/dL Urine Ketones Negative (NEGATIVE) mg/dL Urine Occult Blood Trace-intact H (NEGATIVE) Urine Nitrite Negative (NEGATIVE) Urine Bilirubin Small H (NEGATIVE) Urine Urobilinogen 1.0 (0.2-1.0) EU/dL Ur Leukocyte Esterase Negative (NEGATIVE) Urine RBC 0-5 (0-5) Urine WBC 0-5 (0-5) Ur Epithelial Cells Few Amorphous Sediment Many Urine Bacteria Few Urine Mucus Few 08/10/19 08/11/19 08/11/19 Range/Units 22:30 05:40 05:40 WBC 5.8 (4.5-11.0) K/uL RBC 3.55 (3.30-5.50) M/uL Hgb 10.0 L (12.0-15.0) g/dL Hct 32.2 L (36.0-48.0) % MCV 91 (80-98) fL MCH 28 (27-31) pg MCHC 31 L (32-36) % Plt Count 68 L (150-400) K/uL Neut % (Auto) 92 H (36-66) % Lymph % (Auto) 5 L (24-44) % [place] % (Auto) 3 (2-6) % Eos % (Auto) 0 L (2-4) % Baso % (Auto) 0 (0-1) % Sodium 139 L (140-148) mmol/L Potassium 2.7 L* (3.6-5.2) mmol/L Chloride 110 H (100-108) mmol/L Carbon Dioxide 17 L (21-32) mmol/L Anion Gap 14.7 H (5.0-14.0) mmol/L BUN 42 H (7-18) mg/dL Creatinine 1.7 H (0.6-1.0) mg/dL Est Cr Clr Drug Dosing 25.45 mL/min Estimated GFR (MDRD) 29 L (>60) Glucose 124 H (74-106) mg/dL Lactic Acid (0.4-2.0) mmol/L Calcium 6.2 L* D (8.5-10.1) mg/dL Magnesium (1.8-2.4) mg/dL Total Bilirubin (0.2-1.0) mg/dL AST (15-37) U/L ALT (12-78) U/L Alkaline Phosphatase (46-116) U/L Lactate Dehydrogenase (82-234) U/L Troponin I (0.000-0.056) ng/mL C-Reactive Protein (0.0-0.3) mg/dL Total Protein (6.4-8.2) g/dL Albumin (3.4-5.0) g/dL Globulin (2.3-3.5) g/dL Albumin/Globulin Ratio (1.2-2.2) Procalcitonin 7.61 H* ng/mL Urine Color (YELLOW) Urine Appearance (CLEAR) Urine pH (5.0-8.0) Ur Specific [place] (1.008-1.030) Urine Protein (NEGATIVE) mg/dL Urine Glucose (UA) (NEGATIVE) mg/dL Urine Ketones (NEGATIVE) mg/dL Urine Occult Blood (NEGATIVE) Urine Nitrite (NEGATIVE) Urine Bilirubin (NEGATIVE) Urine Urobilinogen (0.2-1.0) EU/dL Ur Leukocyte Esterase (NEGATIVE) Urine RBC (0-5) Urine WBC (0-5) Ur Epithelial Cells Amorphous Sediment Urine Bacteria Urine Mucus 08/11/19 08/11/19 Range/Units 05:40 05:40 WBC (4.5-11.0) K/uL RBC (3.30-5.50) M/uL Hgb (12.0-15.0) g/dL Hct (36.0-48.0) % MCV (80-98) fL MCH (27-31) pg MCHC (32-36) % Plt Count (150-400) K/uL Neut % (Auto) (36-66) % Lymph % (Auto) (24-44) % [place] % (Auto) (2-6) % Eos % (Auto) (2-4) % Baso % (Auto) (0-1) % Sodium (140-148) mmol/L Potassium (3.6-5.2) mmol/L Chloride (100-108) mmol/L Carbon Dioxide (21-32) mmol/L Anion Gap (5.0-14.0) mmol/L BUN (7-18) mg/dL Creatinine (0.6-1.0) mg/dL Est Cr Clr Drug Dosing mL/min Estimated GFR (MDRD) (>60) Glucose (74-106) mg/dL Lactic Acid 1.2 (0.4-2.0) mmol/L Calcium (8.5-10.1) mg/dL Magnesium 1.2 L (1.8-2.4) mg/dL Total Bilirubin (0.2-1.0) mg/dL AST (15-37) U/L ALT (12-78) U/L Alkaline Phosphatase (46-116) U/L Lactate Dehydrogenase (82-234) U/L Troponin I (0.000-0.056) ng/mL C-Reactive Protein (0.0-0.3) mg/dL Total Protein (6.4-8.2) g/dL Albumin (3.4-5.0) g/dL Globulin (2.3-3.5) g/dL Albumin/Globulin Ratio (1.2-2.2) Procalcitonin ng/mL Urine Color (YELLOW) Urine Appearance (CLEAR) Urine pH (5.0-8.0) Ur Specific [place] (1.008-1.030) Urine Protein (NEGATIVE) mg/dL Urine Glucose (UA) (NEGATIVE) mg/dL Urine Ketones (NEGATIVE) mg/dL Urine Occult Blood (NEGATIVE) Urine Nitrite (NEGATIVE) Urine Bilirubin (NEGATIVE) Urine Urobilinogen (0.2-1.0) EU/dL Ur Leukocyte Esterase (NEGATIVE) Urine RBC (0-5) Urine WBC (0-5) Ur Epithelial Cells Amorphous Sediment Urine Bacteria Urine Mucus Srinivasan Results Last 24 Hours: Microbiology 08/10/19 22:30 Aerobic Blood Culture - Preliminary Blood - Venous Anaerobic Blood Culture - Preliminary 08/10/19 22:45 Aerobic Blood Culture - Preliminary Blood - Venous - Lab Draw Anaerobic Blood Culture - Preliminary 08/10/19 21:30 Influenza Type A Antigen Screen - Final Nasal, Unspecified NEGATIVE INFLUENZA A VIRUS AG REFERENCE RANGE: NEGATIVE Influenza Type B Antigen Screen - Final NEGATIVE INFLUENZA B VIRUS AG REFERENCE RANGE: NEGATIVE Med Orders - Current: Current Medications Acetaminophen (Tylenol) 650 mg PO Q4H PRN PRN Reason: Pain (Mild 1-3)/fever Last Admin: 08/11/19 09:12 Dose: 650 mg Hydrocodone Bitart/Acetaminophen ([place] 325-5 Mg) 1 tab PO Q4H PRN PRN Reason: Pain (moderate 4-6) Cyanocobalamin (Vitamin B12) 1,000 mcg SL DAILY [facility] Last Admin: 08/11/19 08:03 Dose: 1,000 mcg Hydromorphone HCl (Dilaudid) 0.5 - 1 mg IVPUSH Q2H PRN PRN Reason: Pain (severe 7-10) Sodium Chloride (Normal Saline) 1,000 mls @ 125 mls/hr IV ASDIRECTED [facility] Last Admin: 08/11/19 03:19 Dose: 125 mls/hr Magnesium Sulfate 2 gm/ Premix 50 mls @ 25 mls/hr IV Q6H [facility] Stop: 08/12/19 05:59 Levofloxacin/Dextrose 750 mg/ (Premix) 150 mls @ 100 mls/hr IV Q48H [facility] Vancomycin HCl 1.5 gm/ Sodium (Chloride) 250 mls @ 167 mls/hr IV ONETIME ONE Stop: 08/11/19 11:29 Last Admin: 08/11/19 10:27 Dose: 167 mls/hr Meropenem 1 gm/ Sodium (Chloride) 100 mls @ 200 mls/hr IV Q12H [facility] Vancomycin HCl 1.25 gm/ Sodium (Chloride) 250 mls @ 167 mls/hr IV Q24H [facility] Insulin Human Lispro (Humalog) 0 unit SUBCUT QIDACANDBED [facility]; Protocol Last Admin: 08/11/19 07:43 Dose: Not Given Levothyroxine Sodium (Synthroid) 100 mcg PO ACBREAKFAST [facility] Last Admin: 08/11/19 07:44 Dose: 100 mcg Lorazepam (Ativan) 1 mg IV Q6H PRN PRN Reason: Nausea/Vomiting Ondansetron HCl (Zofran Odt) 4 mg PO Q6H PRN PRN Reason: Nausea able to take PO Ondansetron HCl (Zofran) 4 mg IV Q4H PRN PRN Reason: Nausea/Vomiting Pantoprazole Sodium (Protonix) 40 mg PO ACBREAKFAST [facility] Discontinued Medications Azithromycin (Zithromax) 500 mg PO BEDTIME [facility] Hydromorphone HCl (Dilaudid) 0.5 mg IVPUSH ONETIME ONE Stop: 08/10/19 21:29 Last Admin: 08/10/19 21:35 Dose: 0.5 mg Sodium Chloride (Normal Saline) 1,000 mls @ 500 mls/hr IV ASDIRECTED [facility] Last Admin: 08/11/19 00:38 Dose: 500 mls/hr Ceftriaxone Sodium 2 gm/ (Sodium Chloride) 50 mls @ 100 mls/hr IV ONETIME ONE Stop: 08/10/19 22:55 Last Admin: 08/10/19 22:38 Dose: 100 mls/hr Sodium Chloride (Normal Saline) 1,000 mls @ 999 mls/hr IV ASDIRECTED [facility] Azithromycin 500 mg/ Sodium (Chloride) 250 mls @ 250 mls/hr IV Q24H [facility] Last Admin: 08/11/19 00:57 Dose: 250 mls/hr Ceftriaxone Sodium 1 gm/ (Sodium Chloride) 50 mls @ 100 mls/hr IV Q24H [facility] Potassium Chloride 20 meq/Lidocaine HCl 2 ml/ Sodium Chloride 112 mls @ 50 mls/ hr IV Q2H [facility] Stop: 08/11/19 10:59 Last Admin: 08/11/19 07:44 Dose: 50 mls/hr Sodium Chloride (Normal Saline) 1,000 mls @ 999 mls/hr IV .BOLUS ONE Stop: 08/11/19 10:20 Vancomycin HCl 1.25 gm/ Sodium (Chloride) 250 mls @ 150 mls/hr IV Q12H [facility] Meropenem 500 mg/ Sodium (Chloride) 50 mls @ 100 mls/hr IV Q8H [facility] Insulin Glargine (Lantus Solostar) 30 units SUBCUT BEDTIME [facility] Lisinopril (Prinivil) 20 mg PO DAILY [facility] Last Admin: 08/11/19 08:20 Dose: Not Given Pantoprazole Sodium (Protonix Iv) 40 mg IVPUSH DAILY [facility] Last Admin: 08/11/19 01:35 Dose: 40 mg - Exam Quality Assessment: No: Supplemental Oxygen General: Alert, Oriented, Cooperative, Moderate Distress (rigors) HEENT: Pupils Equal Lungs: Clear to Auscultation, Normal Respiratory Effort Cardiovascular: Regular Rhythm, Tachycardia GI/Abdominal Exam: Normal Bowel Sounds, Soft, No Distention, Tender (Moderate generalized and moderately severe left-sided), Splenomegaly (Possible) Extremities: No Pedal Edema. No: Increased Warmth Skin: Warm, Dry Psy/Mental Status: Alert, Normal Affect Sepsis Event Note - Evaluation Sepsis Screening Result: No Definite Risk - Focused Exam Vital Signs: Vital Signs Temp Temp Temp Pulse Resp BP BP 08/11/19 10:51 37.2 C 91 18 88/27 L 08/11/19 09:42 37.2 C 08/11/19 09:12 36.6 C 08/11/19 08:20 98/39 L 08/11/19 07:24 08/11/19 07:00 35.9 C L 75 16 98/39 L 08/11/19 05:45 35.8 C L 88 18 96/48 L 08/11/19 02:29 76 18 88/42 L 08/11/19 00:26 37.1 C 83 18 84/45 L 08/11/19 00:25 08/10/19 23:37 82 19 78/39 L Pulse Ox 08/11/19 10:51 96 08/11/19 09:42 08/11/19 09:12 08/11/19 08:20 08/11/19 07:24 100 08/11/19 07:00 100 08/11/19 05:45 99 08/11/19 02:29 93 L 08/11/19 00:26 95 08/11/19 00:25 94 L 08/10/19 23:37 94 L Date Exam was Performed: 08/11/19 Time Exam was Performed: 11:25 - Problem List Review Problem List Initiated/Reviewed/Updated: Yes - My Orders Last 24 Hours: My Active Orders 08/11/19 09:18 CLOS DIFFICILE PCR W/REFLEX [RM] Routine CULTURE STOOL + SHIGATOX [RM] Routine WBC, STOOL [OP] Routine 08/11/19 09:36 Chest Abdomen Pelvis wo Cont [CT] Urgent 08/11/19 10:00 Levofloxacin/Dextrose 5%-Water [Levaquin in D5W 750 MG/150 ML] 750 mg Premix Bag 1 bag IV Q48H Magnesium Sulfate/Water [Magnesium Sulfate in Water Premix] 2 gm Premix Bag 1 bag IV Q6H Vancomycin 1.5 gm Sodium Chloride 0.9% [Normal Saline] 250 ml IV ONETIME 08/11/19 11:14 Transfer Patient (Change bed) [ADT] Routine 08/11/19 12:00 Meropenem [Merrem] 1 gm Sodium Chloride 0.9% [Normal Saline] 100 ml IV Q12H 08/11/19 13:00 LACTIC ACID [CHEM] Routine POTASSIUM,K [CHEM] Routine 08/11/19 16:30 Pantoprazole [ProTONIX] 40 mg PO ACBREAKFAST 08/12/19 05:00 CBC WITH AUTO DIFF [HEME] Timed COMPREHENSIVE METABOLIC PN,CMP [CHEM] Timed CULTURE BLOOD [BC] Timed MAGNESIUM [CHEM] Timed 08/12/19 10:00 Vancomycin 1.25 gm Sodium Chloride 0.9% [Normal Saline] 250 ml IV Q24H - Plan Plan:: ASSESSMENT AND PLAN - Abdominal pain with severe diarrhea and sepsis Gram-positive bacteremia-CT scan pending. Copious diarrhea. Could be severe diverticulitis versus ruptured diverticulitis versus C. difficile versus other colitis. COVID19 infection thought to be fairly unlikely but was more concerning last night. Evidence for sepsis includes tachycardia and hypotension. Blood cultures are growing gram- positive cocci in chains. Lactic acid level remains normal. -IV fluid bolus now -Broad-spectrum antibiotic coverage with levofloxacin, meropenem and vancomycin -follow-up blood cultures -Transfer to the intensive care unit -CT scan of the chest, abdomen and pelvis -Droplet precautions until COVID19 infection ruled out Acute kidney injury-significant rise in creatinine from baseline, likely secondary to sepsis. -Aggressive fluid challenges and repeat labs in the morning Hypokalemia-significant hypokalemia noted this morning and 40 mEq have been ordered and are transfusing. -Complete supplementation and recheck this afternoon Hypomagnesemia-plan to supplement throughout the day History of gastric bypass surgery-I would anticipate surgical consultation depending on what the CAT scan shows Diabetes Type 2 -sugars on the low side and patient not currently eating much. -Hold long-acting insulin -Insulin short acting low dose sliding scale coverage -Blood glucose testing before meals and at bedtime Maintenance issues -Nutrition: consistent carb diet -Roberts catheter -not indicated at this time -DVT: SCD -GI-PPI Disposition-I would anticipate discharge home after the hospital stay Ajay Garcia MD
[2019-08-11] MEDS ORDERED: Meropenem 500 MG in Sodium Chloride 0.9% 50 ML IV SCH (12:00)
[2019-08-11] MEDS: Meropenem 1 GM in Sodium Chloride 0.9% 100 ML IV SCH ×2 (12:22→23:22)
--- NOTE | 2019-08-11 12:42 | CT ---
Chest Abdomen Pelvis wo Cont CLINICAL HISTORY: Abdominal pain, diarrhea, fever TECHNIQUE: Transverse scans were obtained from the thoracic inlet to the lung bases without contrast. Auto dosage reduction and iterative reconstruction techniques employed. COMPARISONS: None FINDINGS: There is some minimal scarring in the right apex. There is a 2 x 4 mm noncalcified nodule in the right upper lobe on image #43. No other pulmonary mass or infiltrate is identified. There is a 2 x 3 mm nodule in the superior segment of the right lower lobe seen on image #44 No mediastinal mass or lymphadenopathy is identified. There are no pleural effusions IMPRESSION: There are 2 tiny noncalcified nodules in the right lung. No specific follow-up recommended No mass, adenopathy or infiltrate CT Abdomen Pelvis wo Cont COMPARISON: None. TECHNIQUE: Axial tomographic images are obtained from the dome of the diaphragm to the pubic symphysis without IV contrast enhancement. No oral contrast was used. Auto dosage reduction and iterative reconstruction techniques employed. FINDINGS: The liver shows no mass or biliary dilatation. The gallbladder has been removed. Patient has had previous gastric surgery. The spleen is upper limits of normal size. The pancreas shows no mass or inflammatory change. There is 11 mm nodule in the right adrenal gland. Density measurement is nonspecific. There are some tiny calcifications in the right renal pelvis which appear to be vascular. The aorta shows some atheromatous change without aneurysm. There is no suspicious retroperitoneal adenopathy. The bladder has a normal contour. The uterus is mildly prominent. There is a ill-defined ringlike calcification in the region of the cervix of uncertain etiology. There appears to be a subtotal colectomy with small bowel anastomosis. Small intestinal configuration is nonacute. There are irregular densities in the right abdominal subcutaneous fat just below the umbilicus. The these are likely injection sites IMPRESSION: Previous bariatric surgery Apparent subtotal colectomy with small bowel anastomosis. Clinical correlation necessary. Ringlike calcification in the region of the cervix of uncertain etiology. No there are some scattered tiny uterine calcifications. The cervical calcification is not typical for fibroids. This should be correlated with gynecologic exam 11 mm right adrenal nodule is nonspecific. If clinically relevant, dedicated the CT or MRI of the adrenals is a consideration.
--- NOTE | 2019-08-11 13:40 | PCM.SN ---
- Free Text/Narrative Note: [id number] 08/11/19 Blood pressure improving after fluid bolus. Rigors have stopped. Patient is feeling better at this point. Heart rate is down to the 80s. Bedside ultrasound showed normal cardiac function. I did not get a great look at valves or her pacemaker wires but no obvious evidence for endocarditis still exam was somewhat difficult. Her pacemaker site looks normal and does not feel warm to touch. There is no obvious swelling around the pacemaker. She does report symptoms started later in the day after she had chiropractic manipulation which did include massage around the pacemaker area. She does have a red, swollen painful right great toe which we will x-ray. CT of the chest abdomen and pelvis was unremarkable. Exact source of infection leading to sepsis and gram-positive bacteremia is not clear at this time. Repeat lactic acid and potassium recently collected and potassium will be supplemented as indicated. She is on broad-spectrum antibiotics. Ajay Garcia MD
--- NOTE | 2019-08-11 15:10 | CR ---
Toes Great Toe Rt T5 CLINICAL HISTORY: Pain and swelling first toe FINDINGS: There is moderate soft tissue swelling of the first toe. There is moderate osteoarthritic change in the interphalangeal joint with mild osteophytic change in the first MTP joint. No bony destruction or significant demineralization is identified IMPRESSION: Moderate soft tissue swelling of the first toe. 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
[2019-08-11] MEDS: Pantoprazole 40 MG Tab.CR PO SCH (17:00)
[2019-08-11] MEDS: NS + KCl 20mEq/L 1,000 ML IV SCH (19:42)
[2019-08-11] MEDS: Magnesium Sulfate/Water 2 GM in Premix Bag 1 BAG IV SCH (19:42)
[2019-08-11] MEDS ORDERED: Azithromycin 250 MG Tab PO SCH (21:00)
[2019-08-11] MEDS ORDERED: Insulin Glargine,Human Rec. Analog 100 Units/ML 3 ML Pen SUBCUT SCH (21:00)
[2019-08-11] MEDS ORDERED: cefTRIAXone 1 GM in Sodium Chloride 0.9% 50 ML IV SCH (21:00)
[2019-08-12] MEDS: Magnesium Sulfate/Water 2 GM in Premix Bag 1 BAG IV SCH ×2 (01:46→08:03)
[2019-08-12] MEDS: Acetaminophen 325 MG Tab PO PRN (03:37)
[2019-08-12] MEDS: NS + KCl 20mEq/L 1,000 ML IV SCH ×2 (03:49→13:24)
[2019-08-12] MEDS: Cyanocobalamin (Vitamin B12) 1,000 MCG Tab SL SCH (08:00)
[2019-08-12] MEDS: Insulin Lispro 100 Unit/ML 3 ML KwikPen SUBCUT SCH ×4 (08:00→20:49)
[2019-08-12] MEDS: Levothyroxine 100 MCG Tab PO SCH (08:00)
[2019-08-12] MEDS: Pantoprazole 40 MG Tab.CR PO SCH (08:01)
--- NOTE | 2019-08-12 08:25 | PCM.PN ---
- General Info Date of Service: 08/12/19 Subjective Update: There were no acute events overnight. Patient does report some mild to moderate right great toe pain overnight with radiation up into the lower leg. No significant pain this morning. No shortness of breath or nausea. No significant diarrhea since admission but she did have a small quantity of liquid stool that was sent to the lab. C. difficile testing was negative and stool culture is pending. No fevers overnight. Labs are stable and kidney function is improving. Blood cultures are growing a suspected beta strep but further identification is still pending. Functional Status: Reports: Pain Controlled, Tolerating Diet - Review of Systems General: Denies: Fever Gastrointestinal: Denies: Abdominal Pain Musculoskeletal: Reports: Other (right great toe pain ) - Patient Data Vitals - Most Recent: Last Vital Signs Temp 36.9 C 08/12/19 06:00 Pulse 70 08/12/19 06:00 Resp 20 08/12/19 06:00 BP 101/47 L 08/12/19 06:00 Pulse Ox 95 08/12/19 07:38 Weight - Most Recent: 83.915 kg I&O - Last 24 Hours: Intake & Output 08/11/19 08/12/19 08/12/19 22:59 06:59 14:59 Intake Total 3769 2213 Output Total 500 850 Balance 3269 1363 Lab Results Last 24 Hours: Laboratory Results - last 24 hr 08/11/19 08/11/19 08/11/19 Range/Units 05:40 13:05 13:05 WBC (4.5-11.0) K/uL RBC (3.30-5.50) M/uL Hgb (12.0-15.0) g/dL Hct (36.0-48.0) % MCV (80-98) fL MCH (27-31) pg MCHC (32-36) % Plt Count (150-400) K/uL Add Manual Diff Neutrophils % (Manual) (36-66) % Band Neutrophils % (5-11) % Lymphocytes % (Manual) (24-44) % Monocytes % (Manual) (2-6) % Sodium (140-148) mmol/L Potassium 3.7 (3.6-5.2) mmol/L Chloride (100-108) mmol/L Carbon Dioxide (21-32) mmol/L Anion Gap (5.0-14.0) mmol/L BUN (7-18) mg/dL Creatinine (0.6-1.0) mg/dL Est Cr Clr Drug Dosing mL/min Estimated GFR (MDRD) (>60) Glucose (74-106) mg/dL Lactic Acid 1.2 1.5 (0.4-2.0) mmol/L Calcium (8.5-10.1) mg/dL Magnesium (1.8-2.4) mg/dL Total Bilirubin (0.2-1.0) mg/dL AST (15-37) U/L ALT (12-78) U/L Alkaline Phosphatase (46-116) U/L Total Protein (6.4-8.2) g/dL Albumin (3.4-5.0) g/dL Globulin (2.3-3.5) g/dL Albumin/Globulin Ratio (1.2-2.2) 08/12/19 08/12/19 Range/Units 06:10 06:10 WBC 3.2 L (4.5-11.0) K/uL RBC 3.54 (3.30-5.50) M/uL Hgb 10.3 L (12.0-15.0) g/dL Hct 31.3 L (36.0-48.0) % MCV 88 (80-98) fL MCH 29 (27-31) pg MCHC 33 (32-36) % Plt Count 61 L (150-400) K/uL Add Manual Diff Yes Neutrophils % (Manual) 74 H (36-66) % Band Neutrophils % 2 L (5-11) % Lymphocytes % (Manual) 16 L (24-44) % Monocytes % (Manual) 8 H (2-6) % Sodium 136 L (140-148) mmol/L Potassium 4.2 (3.6-5.2) mmol/L Chloride 109 H (100-108) mmol/L Carbon Dioxide 17 L (21-32) mmol/L Anion Gap 14.2 H (5.0-14.0) mmol/L BUN 41 H (7-18) mg/dL Creatinine 1.3 H (0.6-1.0) mg/dL Est Cr Clr Drug Dosing 33.28 mL/min Estimated GFR (MDRD) 40 L (>60) Glucose 95 (74-106) mg/dL Lactic Acid (0.4-2.0) mmol/L Calcium 8.0 L D (8.5-10.1) mg/dL Magnesium 2.5 H D (1.8-2.4) mg/dL Total Bilirubin 0.3 D (0.2-1.0) mg/dL AST 46 H (15-37) U/L ALT 37 (12-78) U/L Alkaline Phosphatase 67 (46-116) U/L Total Protein 5.3 L (6.4-8.2) g/dL Albumin 2.0 L (3.4-5.0) g/dL Globulin 3.3 (2.3-3.5) g/dL Albumin/Globulin Ratio 0.6 L (1.2-2.2) Srinivasan Results Last 24 Hours: Microbiology 08/10/19 22:45 Aerobic Blood Culture - Preliminary Blood - Venous - Lab Draw Anaerobic Blood Culture - Preliminary 08/10/19 22:30 Aerobic Blood Culture - Preliminary Blood - Venous Anaerobic Blood Culture - Preliminary 08/12/19 03:50 Clostridioides difficile (PCR) - Final Stool / Feces 08/12/19 03:50 Stool for WBCs - Final Stool / Feces NO WBC SEEN REFERENCE RANGE: NO WBC SEEN Med Orders - Current: Current Medications Acetaminophen (Tylenol) 650 mg PO Q4H PRN PRN Reason: Pain (Mild 1-3)/fever Last Admin: 08/12/19 03:37 Dose: 650 mg Hydrocodone Bitart/Acetaminophen ([place] 325-5 Mg) 1 tab PO Q4H PRN PRN Reason: Pain (moderate 4-6) Cyanocobalamin (Vitamin B12) 1,000 mcg SL DAILY [facility] Last Admin: 08/12/19 08:00 Dose: 1,000 mcg Hydromorphone HCl (Dilaudid) 0.5 - 1 mg IVPUSH Q2H PRN PRN Reason: Pain (severe 7-10) Last Admin: 08/11/19 12:20 Dose: 0.5 mg Levofloxacin/Dextrose 750 mg/ (Premix) 150 mls @ 100 mls/hr IV Q48H [facility] Last Admin: 08/11/19 12:39 Dose: 100 mls/hr Meropenem 1 gm/ Sodium (Chloride) 100 mls @ 200 mls/hr IV Q12H [facility] Last Admin: 08/11/19 23:22 Dose: 200 mls/hr Vancomycin HCl 1.25 gm/ Sodium (Chloride) 250 mls @ 167 mls/hr IV Q24H [facility] Magnesium Sulfate 2 gm/ Premix 50 mls @ 25 mls/hr IV Q6H [facility] Stop: 08/12/19 09:59 Last Admin: 08/12/19 08:03 Dose: 25 mls/hr Potassium Chloride/Sodium Chloride (Normal Saline With 20 Meq Kcl) 1,000 mls @ 125 mls/hr IV ASDIRECTED [facility] Last Admin: 08/12/19 03:49 Dose: 125 mls/hr Insulin Human Lispro (Humalog) 0 unit SUBCUT QIDACANDBED [facility]; Protocol Last Admin: 08/12/19 08:00 Dose: Not Given Levothyroxine Sodium (Synthroid) 100 mcg PO ACBREAKFAST [facility] Last Admin: 08/12/19 08:00 Dose: 100 mcg Lorazepam (Ativan) 1 mg IV Q6H PRN PRN Reason: Nausea/Vomiting Ondansetron HCl (Zofran Odt) 4 mg PO Q6H PRN PRN Reason: Nausea able to take PO Ondansetron HCl (Zofran) 4 mg IV Q4H PRN PRN Reason: Nausea/Vomiting Pantoprazole Sodium (Protonix) 40 mg PO ACBREAKFAST [facility] Last Admin: 08/12/19 08:01 Dose: 40 mg Discontinued Medications Azithromycin (Zithromax) 500 mg PO BEDTIME [facility] Hydromorphone HCl (Dilaudid) 0.5 mg IVPUSH ONETIME ONE Stop: 08/10/19 21:29 Last Admin: 08/10/19 21:35 Dose: 0.5 mg Sodium Chloride (Normal Saline) 1,000 mls @ 500 mls/hr IV ASDIRECTED [facility] Last Admin: 08/11/19 00:38 Dose: 500 mls/hr Ceftriaxone Sodium 2 gm/ (Sodium Chloride) 50 mls @ 100 mls/hr IV ONETIME ONE Stop: 08/10/19 22:55 Last Admin: 08/10/19 22:38 Dose: 100 mls/hr Sodium Chloride (Normal Saline) 1,000 mls @ 999 mls/hr IV ASDIRECTED [facility] Azithromycin 500 mg/ Sodium (Chloride) 250 mls @ 250 mls/hr IV Q24H [facility] Last Admin: 08/11/19 00:57 Dose: 250 mls/hr Ceftriaxone Sodium 1 gm/ (Sodium Chloride) 50 mls @ 100 mls/hr IV Q24H [facility] Sodium Chloride (Normal Saline) 1,000 mls @ 125 mls/hr IV ASDIRECTED [facility] Last Admin: 08/11/19 03:19 Dose: 125 mls/hr Potassium Chloride 20 meq/Lidocaine HCl 2 ml/ Sodium Chloride 112 mls @ 50 mls/ hr IV Q2H [facility] Stop: 08/11/19 10:59 Last Admin: 08/11/19 13:22 Dose: 50 mls/hr Magnesium Sulfate 2 gm/ Premix 50 mls @ 25 mls/hr IV Q6H [facility] Stop: 08/11/19 15:55 Last Admin: 08/11/19 13:32 Dose: 25 mls/hr Sodium Chloride (Normal Saline) 1,000 mls @ 999 mls/hr IV .BOLUS ONE Stop: 08/11/19 10:20 Last Admin: 08/11/19 12:55 Dose: 999 mls/hr Vancomycin HCl 1.5 gm/ Sodium (Chloride) 250 mls @ 167 mls/hr IV ONETIME ONE Stop: 08/11/19 11:29 Last Admin: 08/11/19 10:27 Dose: 167 mls/hr Vancomycin HCl 1.25 gm/ Sodium (Chloride) 250 mls @ 150 mls/hr IV Q12H [facility] Meropenem 500 mg/ Sodium (Chloride) 50 mls @ 100 mls/hr IV Q8H [facility] Insulin Glargine (Lantus Solostar) 30 units SUBCUT BEDTIME [facility] Lisinopril (Prinivil) 20 mg PO DAILY [facility] Last Admin: 08/11/19 08:20 Dose: Not Given Pantoprazole Sodium (Protonix Iv) 40 mg IVPUSH DAILY [facility] Last Admin: 08/11/19 01:35 Dose: 40 mg - Exam Quality Assessment: No: Supplemental Oxygen General: Alert, Oriented, Cooperative, No Acute Distress Lungs: Clear to Auscultation, Normal Respiratory Effort Cardiovascular: Regular Rate, Regular Rhythm, No Murmurs GI/Abdominal Exam: Soft, No Distention Extremities: No Pedal Edema, Increased Warmth (mild right great toe ), Other ( mild callus at head of 1st metatarsal right foot. No erythema ) Skin: Warm, Dry Psy/Mental Status: Alert, Normal Affect Sepsis Event Note - Evaluation Sepsis Screening Result: No Definite Risk - Focused Exam Vital Signs: Vital Signs Temp Pulse Resp BP Pulse Ox 08/12/19 07:38 95 08/12/19 06:00 36.9 C 70 20 101/47 L 96 08/12/19 04:00 36.8 C 81 14 97/48 L 97 08/12/19 02:00 36.7 C 81 23 H 114/55 L 97 08/12/19 00:00 36.3 C 85 22 H 105/48 L 99 08/11/19 22:00 90 18 124/65 96 Date Exam was Performed: 08/12/19 Time Exam was Performed: 09:53 - Problem List Review Problem List Initiated/Reviewed/Updated: Yes - My Orders Last 24 Hours: My Active Orders 08/11/19 10:00 Levofloxacin/Dextrose 5%-Water [Levaquin in D5W 750 MG/150 ML] 750 mg Premix Bag 1 bag IV Q48H 08/11/19 11:14 Transfer Patient (Change bed) [ADT] Routine 08/11/19 12:00 Meropenem [Merrem] 1 gm Sodium Chloride 0.9% [Normal Saline] 100 ml IV Q12H 08/11/19 15:45 NS + KCl 20mEq/L [Normal Saline with 20 mEq KCl] 1,000 ml IV ASDIRECTED 08/11/19 16:30 Pantoprazole [ProTONIX] 40 mg PO ACBREAKFAST 08/11/19 20:00 Magnesium Sulfate/Water [Magnesium Sulfate in Water Premix] 2 gm Premix Bag 1 bag IV Q6H 08/11/19 20:21 POC Glucose [Blood Glucose Check, Bedside] [RC] QIDACANDBED 08/12/19 03:50 CLOS DIFFICILE PCR W/REFLEX [RM] Routine CULTURE STOOL + SHIGATOX [RM] Routine 08/12/19 06:10 CULTURE BLOOD [BC] Routine 08/12/19 08:19 Foot wo Cont Rt [CT] Routine 08/12/19 10:00 Vancomycin 1.25 gm Sodium Chloride 0.9% [Normal Saline] 250 ml IV Q24H 08/13/19 05:00 BASIC METABOLIC PANEL,BMP [CHEM] Timed CBC W/O DIFF,HEMOGRAM [HEME] Timed (1) - Plan Plan:: ASSESSMENT AND PLAN - Abdominal pain with severe diarrhea and sepsis Gram-positive bacteremia-CT of the chest, abdomen and pelvis was unremarkable. Toe x-ray did not show evidence for osteomyelitis but CT scan is planned. Endocarditis is possible. Repeat blood cultures collected this morning. Plan to get another set tomorrow morning. Sepsis has resolved. -IV fluids at [facility] -Broad-spectrum antibiotic coverage with levofloxacin, meropenem and vancomycin -follow-up blood cultures -CT scan of the right great toe -Echocardiogram to look for endocarditis on Wednesday -Droplet precautions until COVID19 infection ruled out Acute kidney injury-creatinine slowly improving with hydration but not back to baseline. -Aggressive fluid challenges and repeat labs in the morning Hypokalemia-potassium level normal this morning. -Recheck in the morning Hypomagnesemia-improved with supplementation. History of gastric bypass surgery-stable. Diabetes Type 2 -sugars on the low side and patient not currently eating much. -Hold long-acting insulin -Insulin short acting low dose sliding scale coverage -Blood glucose testing before meals and at bedtime Maintenance issues -Nutrition: consistent carb diet -Roberts catheter -not indicated at this time -DVT: SCD -GI-PPI Disposition-I would anticipate discharge home after the hospital stay Ajay Garcia MD
--- NOTE | 2019-08-12 11:51 | CRLCT ---
INDICATION: Infection of the great toe. Patient is not compatible with MRI. COMPARISON: Plain film 10 August. TECHNIQUE: Multi detector imaging from ankle to toes. Axial, coronal and sagittal reformats. FINDINGS: Moderately dense reticular edema like appearance through the great toe subcutaneous soft tissues without focal fluid. Probable ulcer at the medial plantar margin with high attenuation skin thickening and a punctate high attenuation marker or potentially that of debris along the superficial ulcer margin. Small irregular chronic appearing periarticular ossicles at the medial margin of the 1st MTP joint. Slightly blunted plantar plate bony margin of the proximal phalanx suggests there may have been a chronic fracture. 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 Minor degenerative spurring of the medial and lateral 1st metatarsal sesamoids. No evidence for joint effusion. No bony erosion. No acute fracture. IMPRESSION: Cellulitis in the great toe. Shallow ulcer. No abscess, osteomyelitis or septic arthritis findings within the limitations of a noncontrast CT. Chronic degenerative and possibly posttraumatic changes at the 1st MTP and minimal degenerative arthrosis of sesamoids. Please note that all CT scans at this facility use dose modulation, iterative reconstruction, and/or weight-based dosing when appropriate to reduce radiation dose to as low as reasonably achievable. Dictated by Teo Ames MD @ Aug 14 2019 8:18AM Signed by Dr. Teo Ames @ Aug 14 2019 8:26AM
[2019-08-12] MEDS: Meropenem 1 GM in Sodium Chloride 0.9% 100 ML IV SCH ×2 (12:09→23:49)
[2019-08-12] MEDS: Acetaminophen/HYDROcodone 325-5 MG Tab PO PRN (13:36)
[2019-08-12] MEDS ORDERED: Diltiazem 25 MG/5 ML SDV IVPUSH ONE (20:17)
[2019-08-12] MEDS ORDERED: Diltiazem 100 MG in Sodium Chloride 0.9% 100 ML IV SCH (20:30)
[2019-08-13] MEDS: Insulin Lispro 100 Unit/ML 3 ML KwikPen SUBCUT SCH ×4 (08:00→20:14)
[2019-08-13] MEDS: Levothyroxine 100 MCG Tab PO SCH (08:03)
[2019-08-13] MEDS: Pantoprazole 40 MG Tab.CR PO SCH (08:03)
[2019-08-13] MEDS: Cyanocobalamin (Vitamin B12) 1,000 MCG Tab SL SCH (08:03)
[2019-08-13] MEDS ORDERED: Levofloxacin/Dextrose 5%-Water 750 MG in Premix Bag 1 BAG IV SCH (09:00)
--- NOTE | 2019-08-13 10:03 | PCM.PN ---
- General Info Date of Service: 08/13/19 Subjective Update: No acute events overnight but yesterday evening she did go into atrial fibrillation with a rapid ventricular response. She did convert to sinus rhythm fairly quickly after diltiazem was initiated but has been in and out of atrial fibrillation since that time. She says that she is feeling better. Her strength is improving. Diarrhea seems to be slowing down. No complaints of abdominal pain. She does not feel short of breath. Right great toe is looking and feeling better. Repeat blood cultures are negative so far. Functional Status: Reports: Pain Controlled, Tolerating Diet - Review of Systems General: Denies: Fever Cardiovascular: Denies: Chest Pain Gastrointestinal: Reports: Diarrhea - Patient Data Vitals - Most Recent: Last Vital Signs Temp 36.6 C 08/13/19 08:00 Pulse 92 08/13/19 06:00 Resp 20 08/13/19 08:00 BP 106/56 L 08/13/19 08:00 Pulse Ox 99 08/13/19 08:00 Weight - Most Recent: 83.915 kg I&O - Last 24 Hours: Intake & Output 08/12/19 08/13/19 08/13/19 22:59 06:59 14:59 Intake Total 1095 728 Output Total 400 800 Balance 695 -72 Lab Results Last 24 Hours: Laboratory Results - last 24 hr 08/13/19 08/13/19 Range/Units 04:08 04:08 WBC 3.8 L (4.5-11.0) K/uL RBC 3.70 (3.30-5.50) M/uL Hgb 10.4 L (12.0-15.0) g/dL Hct 32.2 L (36.0-48.0) % MCV 87 (80-98) fL MCH 28 (27-31) pg MCHC 32 (32-36) % Plt Count 81 L (150-400) K/uL Sodium 137 L (140-148) mmol/L Potassium 4.0 (3.6-5.2) mmol/L Chloride 109 H (100-108) mmol/L Carbon Dioxide 18 L (21-32) mmol/L Anion Gap 14.0 (5.0-14.0) mmol/L BUN 26 H (7-18) mg/dL Creatinine 1.1 H (0.6-1.0) mg/dL Est Cr Clr Drug Dosing 39.33 mL/min Estimated GFR (MDRD) 49 L (>60) Glucose 95 (74-106) mg/dL Calcium 7.7 L (8.5-10.1) mg/dL Srinivasan Results Last 24 Hours: Microbiology 08/10/19 22:45 Aerobic Blood Culture - Final Blood - Venous - Lab Draw Beta Streptococcus Group B Anaerobic Blood Culture - Final Beta Streptococcus Group B 08/10/19 22:30 Aerobic Blood Culture - Final Blood - Venous Beta Streptococcus Group B Anaerobic Blood Culture - Final Beta Streptococcus Group B 08/12/19 06:10 Aerobic Blood Culture - Preliminary Blood - Arm, Right NO GROWTH AFTER 1 DAY Anaerobic Blood Culture - Preliminary NO GROWTH AFTER 1 DAY 08/12/19 03:50 Shiga Toxin I - Final Stool / Feces NEGATIVE FOR SHIGA TOXIN 1 Shiga Toxin II - Final NEGATIVE FOR SHIGA TOXIN 2 REFERENCE RANGE: NEGATIVE Clostridioides difficile (PCR) - Final Med Orders - Current: Current Medications Acetaminophen (Tylenol) 650 mg PO Q4H PRN PRN Reason: Pain (Mild 1-3)/fever Last Admin: 08/12/19 03:37 Dose: 650 mg Hydrocodone Bitart/Acetaminophen ([place] 325-5 Mg) 1 tab PO Q4H PRN PRN Reason: Pain (moderate 4-6) Last Admin: 08/12/19 13:36 Dose: 1 tab Cyanocobalamin (Vitamin B12) 1,000 mcg SL DAILY [facility] Last Admin: 08/13/19 08:03 Dose: 1,000 mcg Hydromorphone HCl (Dilaudid) 0.5 - 1 mg IVPUSH Q2H PRN PRN Reason: Pain (severe 7-10) Last Admin: 08/11/19 12:20 Dose: 0.5 mg Potassium Chloride/Sodium Chloride (Normal Saline With 20 Meq Kcl) 1,000 mls @ 25 mls/hr IV ASDIRECTED [facility] Last Admin: 08/12/19 13:24 Dose: 125 mls/hr Diltiazem HCl 100 mg/ Sodium (Chloride) 100 mls @ 5 mls/hr IV TITRATE [facility]; Protocol Last Titration: 08/13/19 04:32 Dose: 2.5 mg/hr, 2.5 mls/hr Insulin Human Lispro (Humalog) 0 unit SUBCUT QIDACANDBED [facility]; Protocol Last Admin: 08/13/19 08:00 Dose: Not Given Levothyroxine Sodium (Synthroid) 100 mcg PO ACBREAKFAST [facility] Last Admin: 08/13/19 08:03 Dose: 100 mcg Lorazepam (Ativan) 1 mg IV Q6H PRN PRN Reason: Nausea/Vomiting Ondansetron HCl (Zofran Odt) 4 mg PO Q6H PRN PRN Reason: Nausea able to take PO Ondansetron HCl (Zofran) 4 mg IV Q4H PRN PRN Reason: Nausea/Vomiting Pantoprazole Sodium (Protonix) 40 mg PO ACBREAKFAST [facility] Last Admin: 08/13/19 08:03 Dose: 40 mg Discontinued Medications Azithromycin (Zithromax) 500 mg PO BEDTIME [facility] Diltiazem HCl (Diltiazem) 10 mg IVPUSH ONETIME ONE Stop: 08/12/19 20:18 Last Admin: 08/12/19 20:43 Dose: 10 mg Hydromorphone HCl (Dilaudid) 0.5 mg IVPUSH ONETIME ONE Stop: 08/10/19 21:29 Last Admin: 08/10/19 21:35 Dose: 0.5 mg Sodium Chloride (Normal Saline) 1,000 mls @ 500 mls/hr IV ASDIRECTED [facility] Last Admin: 08/11/19 00:38 Dose: 500 mls/hr Ceftriaxone Sodium 2 gm/ (Sodium Chloride) 50 mls @ 100 mls/hr IV ONETIME ONE Stop: 08/10/19 22:55 Last Admin: 08/10/19 22:38 Dose: 100 mls/hr Sodium Chloride (Normal Saline) 1,000 mls @ 999 mls/hr IV ASDIRECTED [facility] Azithromycin 500 mg/ Sodium (Chloride) 250 mls @ 250 mls/hr IV Q24H [facility] Last Admin: 08/11/19 00:57 Dose: 250 mls/hr Ceftriaxone Sodium 1 gm/ (Sodium Chloride) 50 mls @ 100 mls/hr IV Q24H [facility] Sodium Chloride (Normal Saline) 1,000 mls @ 125 mls/hr IV ASDIRECTED [facility] Last Admin: 08/11/19 03:19 Dose: 125 mls/hr Potassium Chloride 20 meq/Lidocaine HCl 2 ml/ Sodium Chloride 112 mls @ 50 mls/ hr IV Q2H [facility] Stop: 08/11/19 10:59 Last Admin: 08/11/19 13:22 Dose: 50 mls/hr Magnesium Sulfate 2 gm/ Premix 50 mls @ 25 mls/hr IV Q6H [facility] Stop: 08/11/19 15:55 Last Admin: 08/11/19 13:32 Dose: 25 mls/hr Levofloxacin/Dextrose 750 mg/ (Premix) 150 mls @ 100 mls/hr IV Q48H [facility] Last Admin: 08/11/19 12:39 Dose: 100 mls/hr Sodium Chloride (Normal Saline) 1,000 mls @ 999 mls/hr IV .BOLUS ONE Stop: 08/11/19 10:20 Last Admin: 08/11/19 12:55 Dose: 999 mls/hr Vancomycin HCl 1.5 gm/ Sodium (Chloride) 250 mls @ 167 mls/hr IV ONETIME ONE Stop: 08/11/19 11:29 Last Admin: 08/11/19 10:27 Dose: 167 mls/hr Vancomycin HCl 1.25 gm/ Sodium (Chloride) 250 mls @ 150 mls/hr IV Q12H [facility] Meropenem 500 mg/ Sodium (Chloride) 50 mls @ 100 mls/hr IV Q8H [facility] Meropenem 1 gm/ Sodium (Chloride) 100 mls @ 200 mls/hr IV Q12H [facility] Last Admin: 08/12/19 23:49 Dose: 200 mls/hr Vancomycin HCl 1.25 gm/ Sodium (Chloride) 250 mls @ 167 mls/hr IV Q24H [facility] Last Admin: 08/12/19 09:07 Dose: 167 mls/hr Magnesium Sulfate 2 gm/ Premix 50 mls @ 25 mls/hr IV Q6H [facility] Stop: 08/12/19 09:59 Last Admin: 08/12/19 08:03 Dose: 25 mls/hr Levofloxacin/Dextrose 750 mg/ (Premix) 150 mls @ 100 mls/hr IV Q48H [facility] Last Admin: 08/13/19 08:54 Dose: 100 mls/hr Insulin Glargine (Lantus Solostar) 30 units SUBCUT BEDTIME [facility] Lisinopril (Prinivil) 20 mg PO DAILY [facility] Last Admin: 08/11/19 08:20 Dose: Not Given Pantoprazole Sodium (Protonix Iv) 40 mg IVPUSH DAILY [facility] Last Admin: 08/11/19 01:35 Dose: 40 mg - Exam Quality Assessment: No: Supplemental Oxygen General: Alert, Oriented, Cooperative, No Acute Distress HEENT: Other (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 No: Wheezing Cardiovascular: Regular Rate, Irregular Rhythm GI/Abdominal Exam: Soft, No Distention Extremities: No Pedal Edema, Other (no swelling or redness of right great toe today ). No: Increased Warmth Skin: Warm, Dry Psy/Mental Status: Alert, Normal Affect Sepsis Event Note - Evaluation Sepsis Screening Result: No Definite Risk - Focused Exam Vital Signs: Vital Signs Temp Pulse Resp BP Pulse Ox 08/13/19 08:00 36.6 C 20 106/56 L 99 08/13/19 07:00 99 08/13/19 06:00 92 25 H 105/50 L 96 08/13/19 05:06 96 23 H 99/51 L 08/13/19 04:00 36.8 C 91 22 H 95/43 L 92 L 08/13/19 02:00 110 H 17 146/44 H 96 08/13/19 00:00 36.8 C 81 22 H 127/51 L 96 Date Exam was Performed: 08/13/19 Time Exam was Performed: 11:29 - Problem List Review Problem List Initiated/Reviewed/Updated: Yes - My Orders Last 24 Hours: My Active Orders 08/12/19 20:30 Diltiazem [Cardizem] 100 mg Sodium Chloride 0.9% [Normal Saline] 100 ml IV TITRATE 08/13/19 12:00 cefTRIAXone [Rocephin] 2 gm Sodium Chloride 0.9% [Normal Saline] 50 ml IV Q24H 08/14/19 05:00 BASIC METABOLIC PANEL,BMP [CHEM] Timed CBC W/O DIFF,HEMOGRAM [HEME] Timed (1) MAGNESIUM [CHEM] Timed 08/14/19 07:00 Echo Comp wo Cont [US] Routine - Plan Plan:: ASSESSMENT AND PLAN - Abdominal pain with severe diarrhea and sepsis Gram-positive bacteremia-CT of the chest, abdomen and pelvis was unremarkable. Toe CT did not show evidence for osteomyelitis. She did go into atrial fibrillation last night which raises some additional concern that she may have endocarditis along with the unclear source of infection. Swollen right great toe and nodule on her left hand could potentially represent septic emboli. Clinically she is improving. Repeat blood cultures negative so far. -IV fluids at [facility]KO -Narrow antibiotic coverage to ceftriaxone for group B beta strep -follow-up blood cultures -Echocardiogram to look for endocarditis on Wednesday -Droplet precautions until COVID19 infection ruled out Atrial fibrillation with rapid ventricular response-no history of this rhythm. She has been in and out of atrial fibrillation since yesterday. No symptoms with the tachycardia. Vital signs otherwise stable. -Continue diltiazem infusion at least through the first part of the day Acute kidney injury-creatinine nearly back to baseline. -labs in the morning Hypokalemia-potassium level normal this morning. -Recheck in the morning Hypomagnesemia-improved with supplementation. History of gastric bypass surgery-stable. Diabetes Type 2 -sugars on the low side and patient not currently eating much. -Continue to hold long-acting insulin -Insulin short acting low dose sliding scale coverage -Blood glucose testing before meals and at bedtime Maintenance issues -Nutrition: consistent carb diet -Roberts catheter -not indicated at this time -DVT: SCD -GI-PPI Disposition-I would anticipate discharge home after the hospital stay Ajay Garcia MD
[2019-08-13] MEDS: cefTRIAXone 2 GM in Sodium Chloride 0.9% 50 ML IV SCH (11:17)
[2019-08-13] MEDS: Acetaminophen/HYDROcodone 325-5 MG Tab PO PRN (23:05)
[2019-08-14] MEDS: Insulin Lispro 100 Unit/ML 3 ML KwikPen SUBCUT SCH ×4 (07:34→20:48)
[2019-08-14] MEDS: Pantoprazole 40 MG Tab.CR PO SCH (07:54)
[2019-08-14] MEDS: Cyanocobalamin (Vitamin B12) 1,000 MCG Tab SL SCH ×2 (07:54→09:24)
[2019-08-14] MEDS: Levothyroxine 100 MCG Tab PO SCH (07:54)
--- NOTE | 2019-08-14 09:22 | PCM.PN ---
- General Info Date of Service: 08/14/19 Subjective Update: Ms. Dey has been stable since yesterday, heart rate within desired range and she has been in sinus rhythm. Pain in her right first toe has improved, now experiencing pain in her left third finger. Appetite slowly better and she has remained afebrile and hemodynamically stable. - Review of Systems General: Reports: Weakness, Fatigue. Denies: Fever, Chills Pulmonary: Reports: No Symptoms Cardiovascular: Reports: No Symptoms Gastrointestinal: Reports: No Symptoms - Patient Data Vitals - Most Recent: Last Vital Signs Temp 95.5 F L 08/14/19 07:56 Pulse 77 08/14/19 07:56 Resp 18 08/14/19 07:56 BP 165/87 H 08/14/19 07:56 Pulse Ox 96 08/14/19 08:00 Weight - Most Recent: 185 lb I&O - Last 24 Hours: Intake & Output 08/13/19 08/14/19 08/14/19 22:59 06:59 14:59 Intake Total 240 Balance 240 Lab Results Last 24 Hours: Laboratory Results - last 24 hr 08/10/19 08/14/19 08/14/19 Range/Units 21:32 04:00 04:00 WBC 4.8 (4.5-11.0) K/uL RBC 3.61 (3.30-5.50) M/uL Hgb 10.2 L (12.0-15.0) g/dL Hct 31.6 L (36.0-48.0) % MCV 88 (80-98) fL MCH 28 (27-31) pg MCHC 32 (32-36) % Plt Count 97 L (150-400) K/uL Sodium 139 L (140-148) mmol/L Potassium 4.0 (3.6-5.2) mmol/L Chloride 109 H (100-108) mmol/L Carbon Dioxide 20 L (21-32) mmol/L Anion Gap 14.0 (5.0-14.0) mmol/L BUN 20 H (7-18) mg/dL Creatinine 1.1 H (0.6-1.0) mg/dL Est Cr Clr Drug Dosing 39.33 mL/min Estimated GFR (MDRD) 49 L (>60) Glucose 107 H (74-106) mg/dL Calcium 8.1 L (8.5-10.1) mg/dL Magnesium 1.6 L D (1.8-2.4) mg/dL Myoglobin 167 H (25-58) ng/mL Srinivasan Results Last 24 Hours: Microbiology 08/12/19 06:10 Aerobic Blood Culture - Preliminary Blood - Arm, Right NO GROWTH AFTER 2 DAYS Anaerobic Blood Culture - Preliminary NO GROWTH AFTER 2 DAYS 08/12/19 03:50 Stool Culture - Preliminary Stool / Feces Shiga Toxin I - Final NEGATIVE FOR SHIGA TOXIN 1 Shiga Toxin II - Final NEGATIVE FOR SHIGA TOXIN 2 REFERENCE RANGE: NEGATIVE Clostridioides difficile (PCR) - Final 08/10/19 22:45 Aerobic Blood Culture - Final Blood - Venous - Lab Draw Beta Streptococcus Group B Anaerobic Blood Culture - Final Beta Streptococcus Group B 08/10/19 22:30 Aerobic Blood Culture - Final Blood - Venous Beta Streptococcus Group B Anaerobic Blood Culture - Final Beta Streptococcus Group B Med Orders - Current: Current Medications Acetaminophen (Tylenol) 650 mg PO Q4H PRN PRN Reason: Pain (Mild 1-3)/fever Last Admin: 08/12/19 03:37 Dose: 650 mg Hydrocodone Bitart/Acetaminophen ([place] 325-5 Mg) 1 tab PO Q4H PRN PRN Reason: Pain (moderate 4-6) Last Admin: 08/13/19 23:05 Dose: 1 tab Cyanocobalamin (Vitamin B12) 1,000 mcg SL DAILY [facility] Last Admin: 08/14/19 07:54 Dose: 1,000 mcg Diltiazem HCl (Cardizem Cd) 120 mg PO DAILY [facility] Hydromorphone HCl (Dilaudid) 0.5 - 1 mg IVPUSH Q2H PRN PRN Reason: Pain (severe 7-10) Last Admin: 08/11/19 12:20 Dose: 0.5 mg Ceftriaxone Sodium 2 gm/ (Sodium Chloride) 50 mls @ 100 mls/hr IV Q24H [facility] Last Admin: 08/13/19 11:17 Dose: 100 mls/hr Magnesium Sulfate 2 gm/ Premix 50 mls @ 25 mls/hr IV Q6H [facility] Stop: 08/14/19 16:59 Insulin Human Lispro (Humalog) 0 unit SUBCUT QIDACANDBED [facility]; Protocol Last Admin: 08/14/19 07:34 Dose: Not Given Levothyroxine Sodium (Synthroid) 100 mcg PO ACBREAKFAST [facility] Last Admin: 08/14/19 07:54 Dose: 100 mcg Lorazepam (Ativan) 1 mg IV Q6H PRN PRN Reason: Nausea/Vomiting Magnesium Oxide (Magnesium Oxide) 400 mg PO BID [facility] Ondansetron HCl (Zofran Odt) 4 mg PO Q6H PRN PRN Reason: Nausea able to take PO Ondansetron HCl (Zofran) 4 mg IV Q4H PRN PRN Reason: Nausea/Vomiting Pantoprazole Sodium (Protonix) 40 mg PO ACBREAKFAST [facility] Last Admin: 08/14/19 07:54 Dose: 40 mg Discontinued Medications Azithromycin (Zithromax) 500 mg PO BEDTIME [facility] Diltiazem HCl (Diltiazem) 10 mg IVPUSH ONETIME ONE Stop: 08/12/19 20:18 Last Admin: 08/12/19 20:43 Dose: 10 mg Hydromorphone HCl (Dilaudid) 0.5 mg IVPUSH ONETIME ONE Stop: 08/10/19 21:29 Last Admin: 08/10/19 21:35 Dose: 0.5 mg Sodium Chloride (Normal Saline) 1,000 mls @ 500 mls/hr IV ASDIRECTED [facility] Last Admin: 08/11/19 00:38 Dose: 500 mls/hr Ceftriaxone Sodium 2 gm/ (Sodium Chloride) 50 mls @ 100 mls/hr IV ONETIME ONE Stop: 08/10/19 22:55 Last Admin: 08/10/19 22:38 Dose: 100 mls/hr Sodium Chloride (Normal Saline) 1,000 mls @ 999 mls/hr IV ASDIRECTED [facility] Azithromycin 500 mg/ Sodium (Chloride) 250 mls @ 250 mls/hr IV Q24H [facility] Last Admin: 08/11/19 00:57 Dose: 250 mls/hr Ceftriaxone Sodium 1 gm/ (Sodium Chloride) 50 mls @ 100 mls/hr IV Q24H [facility] Sodium Chloride (Normal Saline) 1,000 mls @ 125 mls/hr IV ASDIRECTED [facility] Last Admin: 08/11/19 03:19 Dose: 125 mls/hr Potassium Chloride 20 meq/Lidocaine HCl 2 ml/ Sodium Chloride 112 mls @ 50 mls/ hr IV Q2H [facility] Stop: 08/11/19 10:59 Last Admin: 08/11/19 13:22 Dose: 50 mls/hr Magnesium Sulfate 2 gm/ Premix 50 mls @ 25 mls/hr IV Q6H [facility] Stop: 08/11/19 15:55 Last Admin: 08/11/19 13:32 Dose: 25 mls/hr Levofloxacin/Dextrose 750 mg/ (Premix) 150 mls @ 100 mls/hr IV Q48H [facility] Last Admin: 08/11/19 12:39 Dose: 100 mls/hr Sodium Chloride (Normal Saline) 1,000 mls @ 999 mls/hr IV .BOLUS ONE Stop: 08/11/19 10:20 Last Admin: 08/11/19 12:55 Dose: 999 mls/hr Vancomycin HCl 1.5 gm/ Sodium (Chloride) 250 mls @ 167 mls/hr IV ONETIME ONE Stop: 08/11/19 11:29 Last Admin: 08/11/19 10:27 Dose: 167 mls/hr Vancomycin HCl 1.25 gm/ Sodium (Chloride) 250 mls @ 150 mls/hr IV Q12H [facility] Meropenem 500 mg/ Sodium (Chloride) 50 mls @ 100 mls/hr IV Q8H [facility] Meropenem 1 gm/ Sodium (Chloride) 100 mls @ 200 mls/hr IV Q12H [facility] Last Admin: 08/12/19 23:49 Dose: 200 mls/hr Vancomycin HCl 1.25 gm/ Sodium (Chloride) 250 mls @ 167 mls/hr IV Q24H [facility] Last Admin: 08/12/19 09:07 Dose: 167 mls/hr Magnesium Sulfate 2 gm/ Premix 50 mls @ 25 mls/hr IV Q6H [facility] Stop: 08/12/19 09:59 Last Admin: 08/12/19 08:03 Dose: 25 mls/hr Potassium Chloride/Sodium Chloride (Normal Saline With 20 Meq Kcl) 1,000 mls @ 25 mls/hr IV ASDIRECTED [facility] Last Admin: 08/12/19 13:24 Dose: 125 mls/hr Diltiazem HCl 100 mg/ Sodium (Chloride) 100 mls @ 5 mls/hr IV TITRATE [facility]; Protocol Last Titration: 08/13/19 04:32 Dose: 2.5 mg/hr, 2.5 mls/hr Levofloxacin/Dextrose 750 mg/ (Premix) 150 mls @ 100 mls/hr IV Q48H [facility] Last Admin: 08/13/19 08:54 Dose: 100 mls/hr Insulin Glargine (Lantus Solostar) 30 units SUBCUT BEDTIME [facility] Lisinopril (Prinivil) 20 mg PO DAILY [facility] Last Admin: 08/11/19 08:20 Dose: Not Given Pantoprazole Sodium (Protonix Iv) 40 mg IVPUSH DAILY [facility] Last Admin: 08/11/19 01:35 Dose: 40 mg - Exam Quality Assessment: DVT Prophylaxis General: Alert, Oriented, Cooperative, No Acute Distress Lungs: Clear to Auscultation, Normal Respiratory Effort Cardiovascular: Regular Rate, Regular Rhythm, No Murmurs GI/Abdominal Exam: Soft, Non-Tender, No Organomegaly, No Distention Extremities: Non-Tender, No Pedal Edema Sepsis Event Note - Evaluation Sepsis Screening Result: No Definite Risk - Focused Exam Vital Signs: Vital Signs Temp Pulse Resp BP Pulse Ox 08/14/19 08:00 96 08/14/19 07:56 95.5 F L 77 18 165/87 H 96 08/14/19 05:41 78 18 127/70 96 08/14/19 04:57 96.4 F L 82 18 127/56 L 96 08/14/19 01:55 73 16 124/57 L 94 L 08/13/19 23:01 96.9 F 75 14 110/55 L 97 Date Exam was Performed: 08/14/19 Time Exam was Performed: 09:16 - Problem List Review Problem List Initiated/Reviewed/Updated: Yes - My Orders Last 24 Hours: My Active Orders 08/14/19 09:00 Magnesium Oxide 400 mg PO BID Magnesium Sulfate/Water [Magnesium Sulfate in Water Premix] 2 gm Premix Bag 1 bag IV Q6H 08/14/19 09:09 Convert IV to Saline Lock [OM.PC] Routine 08/14/19 09:12 Patient Status [ADT] Routine 08/14/19 09:15 Diltiazem [Cardizem CD] 120 mg PO DAILY 08/15/19 05:00 BASIC METABOLIC PANEL,BMP [CHEM] Timed MAGNESIUM [CHEM] Timed - Plan Plan:: ASSESSMENT AND PLAN Abdominal pain with severe diarrhea and sepsis Gram-positive bacteremia-CT of the chest, abdomen and pelvis was unremarkable. Toe CT did not show evidence for osteomyelitis. She did go into atrial fibrillation which raises some additional concern that she may have endocarditis along with the unclear source of infection. Swollen right great toe and nodule on her left hand could potentially represent septic emboli. Clinically she is improving. Repeat blood cultures negative so far. Covid 19 test has returned as negative this morning -In lock IV -Ceftriaxone 1 g IV every 24 hours -follow-up blood cultures -Echocardiogram to look for endocarditis today Atrial fibrillation with rapid ventricular response-no history of this rhythm. Able with good rate control no symptoms with the tachycardia. Vital signs otherwise stable. -Discontinue diltiazem infusion at least through the first part of the day -Diltiazem CD 120 mg p.o. daily Acute kidney injury-resolved Hypokalemia-potassium level normal this morning. -Recheck in the morning Hypomagnesemia -IV and oral magnesium replacement -Recheck magnesium level in a.m. History of gastric bypass surgery-stable. Diabetes Type 2 -sugars on the low side and patient not currently eating much. -Continue to hold long-acting insulin -Insulin short acting low dose sliding scale coverage -Blood glucose testing before meals and at bedtime Maintenance issues -Nutrition: consistent carb diet -Roberts catheter -not indicated at this time -DVT: SCD -GI-PPI Disposition-I would anticipate discharge home after the hospital stay
[2019-08-14] MEDS: Magnesium Oxide 400 MG Tab PO SCH ×2 (09:33→20:47)
[2019-08-14] MEDS: Diltiazem 120 MG Cap.CD PO SCH (09:34)
[2019-08-14] MEDS: Magnesium Sulfate/Water 2 GM in Premix Bag 1 BAG IV SCH ×2 (09:40→15:09)
[2019-08-14] MEDS: cefTRIAXone 2 GM in Sodium Chloride 0.9% 50 ML IV SCH (12:20)
[2019-08-15] MEDS: Insulin Lispro 100 Unit/ML 3 ML KwikPen SUBCUT SCH ×2 (07:39→11:50)
[2019-08-15] MEDS: Levothyroxine 100 MCG Tab PO SCH (07:40)
[2019-08-15] MEDS: Pantoprazole 40 MG Tab.CR PO SCH (07:40)
[2019-08-15 07:44] VITALS: BP 119/38
[2019-08-15] MEDS: Magnesium Oxide 400 MG Tab PO SCH (10:07)
[2019-08-15 10:08] VITALS: PULSE 79
[2019-08-15] MEDS: Diltiazem 120 MG Cap.CD PO SCH (10:08)
[2019-08-15] MEDS: Cyanocobalamin (Vitamin B12) 1,000 MCG Tab SL SCH (10:08)
--- NOTE | 2019-08-15 11:02 | PCM.DCSUM1 ---
Discharge Summary - Hospital Course Brief History: Ms. Blue is a 74-year-old woman who was admitted through the emergency department with sepsis and associated acute kidney injury. - Discharge Data Discharge Date: 08/15/19 Discharge Disposition: Home, Self-Care 01 Condition: Fair - Referral to Home Health Primary Care Physician: Homer Jansen MD - Discharge Diagnosis/Problem(s) (1) Diarrhea SNOMED Code(s): 53615678 ICD Code: R19.7 - DIARRHEA, UNSPECIFIED Status: Acute Current Visit: Yes (2) Dehydration SNOMED Code(s): 34014270 ICD Code: E86.0 - DEHYDRATION Status: Acute Priority: High Current Visit: Yes (3) Sepsis SNOMED Code(s): 13368525 ICD Code: A41.9 - SEPSIS, UNSPECIFIED ORGANISM Status: Acute Priority: High Current Visit: Yes Qualifiers: Sepsis type: sepsis due to unspecified organism (4) Type 2 diabetes mellitus SNOMED Code(s): 73475641 ICD Code: E11.9 - TYPE 2 DIABETES MELLITUS WITHOUT COMPLICATIONS Status: Chronic Current Visit: No - Patient Summary/Data Hospital Course: Ms. Blue is a 74-year-old woman who was admitted through the emergency department with weakness and fever. On initial evaluation she was felt to have probable pneumonia and was started on antibiotic therapy appropriate for community-acquired pneumonia. She received vigorous IV fluid replacement per sepsis protocol. Following morning after admission she had experienced ongoing hypotension and was transferred to the intensive care unit for more aggressive management. CT scan of the chest abdomen and pelvis showed no obvious source of infection. Blood cultures quickly grew out gram-positive cocci, later identified as group A strep. She was changed to aggressive antibiotic therapy with vancomycin, meropenem, and levofloxacin. She slowly improved with this regimen over the next several days of hospitalization. After culture results were obtained she was transitioned to IV ceftriaxone 2 g IV every 24 hours. Echocardiogram was obtained on the day prior to discharge, showed no obvious valvular vegetations. Glucose levels were monitored throughout hospital stay and managed with sliding scale Humalog insulin. She had been afebrile with normalization of her white blood cell count for several days prior to discharge. She will be discharged home on an additional 4 days of IV antibiotic therapy with ceftriaxone, this will complete a 10-day course of antibiotic therapy. Activity will be as tolerated and she will resume her usual diet. Follow-up appointment will be scheduled with Dr. Jansen within 1 week. Return to the emergency department if she notes recurrent symptoms of fever or weakness. - Patient Instructions Diet: Usual Diet as Tolerated Activity: As Tolerated Other/Special Instructions: Please schedule follow-up appointment with primary care provider within 1 week. Ceftriaxone 1 g IV every 24 hours for an additional 4 days. - Discharge Plan *PRESCRIPTION DRUG MONITORING PROGRAM REVIEWED*: Not Applicable *COPY OF PRESCRIPTION DRUG MONITORING REPORT IN PATIENT MARIKA: Not Applicable Prescriptions/Med Rec: cefTRIAXone [Rocephin] 1 gm IV Q24H 4 Days #4 vial Home Medications: Home Meds Insulin Glarg,Human.Rec.Analog [Lantus] 30 unit SUBCUT BEDTIME 10/15/14 [History ] Levothyroxine [Synthroid] 100 mcg PO DAILY 10/15/14 [History] lisinopriL [Prinivil] 20 mg PO DAILY 10/15/14 [History] Cyanocobalamin (Vitamin B-12) [Vitamin B-12] 1,000 mcg SL DAILY 06/03/17 [ History] Omeprazole 20 mg PO DAILY 06/03/17 [History] Acetaminophen [Tylenol] 650 mg PO Q4H PRN 30 Days tablet 06/06/17 [Rx] Dulaglutide [Trulicity] 0.75 mg SQ WEEKLY 08/10/19 [History] cefTRIAXone [Rocephin] 1 gm IV Q24H 4 Days #4 vial 08/15/19 [Rx] Referrals: Homer Jansen MD [Primary Care Provider] - - Discharge Summary/Plan Comment DC Time >30 min.: No - Patient Data Vitals - Most Recent: Last Vital Signs Temp 97.0 F 08/15/19 07:42 Pulse 79 08/15/19 10:08 Resp 16 08/15/19 07:42 BP 119/38 L 08/15/19 10:08 Pulse Ox 96 08/15/19 07:42 Weight - Most Recent: 185 lb I&O - Last 24 hours: Intake & Output 08/14/19 08/15/19 08/15/19 22:59 06:59 14:59 Intake Total 710 Balance 710 Lab Results - Last 24 hrs: Laboratory Results - last 24 hr 08/15/19 Range/Units 05:40 Sodium 140 (140-148) mmol/L Potassium 3.9 (3.6-5.2) mmol/L Chloride 108 (100-108) mmol/L Carbon Dioxide 23 (21-32) mmol/L Anion Gap 8.7 (5.0-14.0) mmol/L BUN 16 (7-18) mg/dL Creatinine 0.9 (0.6-1.0) mg/dL Est Cr Clr Drug Dosing 48.07 mL/min Estimated GFR (MDRD) > 60 (>60) Glucose 93 (74-106) mg/dL Calcium 8.1 L (8.5-10.1) mg/dL Magnesium 1.8 (1.8-2.4) mg/dL MELANIE Results - Last 24 hrs: Microbiology 08/12/19 06:10 Aerobic Blood Culture - Preliminary Blood - Arm, Right NO GROWTH AFTER 3 DAYS Anaerobic Blood Culture - Preliminary NO GROWTH AFTER 3 DAYS 08/12/19 03:50 Stool Culture - Final Stool / Feces Shiga Toxin I - Final NEGATIVE FOR SHIGA TOXIN 1 Shiga Toxin II - Final NEGATIVE FOR SHIGA TOXIN 2 REFERENCE RANGE: NEGATIVE Clostridioides difficile (PCR) - Final Med Orders - Current: Current Medications Acetaminophen (Tylenol) 650 mg PO Q4H PRN PRN Reason: Pain (Mild 1-3)/fever Last Admin: 08/12/19 03:37 Dose: 650 mg Hydrocodone Bitart/Acetaminophen ([place] 325-5 Mg) 1 tab PO Q4H PRN PRN Reason: Pain (moderate 4-6) Last Admin: 08/13/19 23:05 Dose: 1 tab Cyanocobalamin (Vitamin B12) 1,000 mcg SL DAILY [facility] Last Admin: 08/15/19 10:08 Dose: 1,000 mcg Diltiazem HCl (Cardizem Cd) 120 mg PO DAILY [facility] Last Admin: 08/15/19 10:08 Dose: 120 mg Hydromorphone HCl (Dilaudid) 0.5 - 1 mg IVPUSH Q2H PRN PRN Reason: Pain (severe 7-10) Last Admin: 08/11/19 12:20 Dose: 0.5 mg Ceftriaxone Sodium 2 gm/ (Sodium Chloride) 50 mls @ 100 mls/hr IV Q24H [facility] Last Admin: 08/14/19 12:20 Dose: 100 mls/hr Insulin Human Lispro (Humalog) 0 unit SUBCUT QIDACANDBED [facility]; Protocol Last Admin: 08/15/19 07:39 Dose: Not Given Levothyroxine Sodium (Synthroid) 100 mcg PO ACBREAKFAST [facility] Last Admin: 08/15/19 07:40 Dose: 100 mcg Lorazepam (Ativan) 1 mg IV Q6H PRN PRN Reason: Nausea/Vomiting Magnesium Oxide (Magnesium Oxide) 400 mg PO BID [facility] Last Admin: 08/15/19 10:07 Dose: 400 mg Ondansetron HCl (Zofran Odt) 4 mg PO Q6H PRN PRN Reason: Nausea able to take PO Ondansetron HCl (Zofran) 4 mg IV Q4H PRN PRN Reason: Nausea/Vomiting Pantoprazole Sodium (Protonix) 40 mg PO ACBREAKFAST [facility] Last Admin: 08/15/19 07:40 Dose: 40 mg Discontinued Medications Azithromycin (Zithromax) 500 mg PO BEDTIME [facility] Diltiazem HCl (Diltiazem) 10 mg IVPUSH ONETIME ONE Stop: 08/12/19 20:18 Last Admin: 08/12/19 20:43 Dose: 10 mg Hydromorphone HCl (Dilaudid) 0.5 mg IVPUSH ONETIME ONE Stop: 08/10/19 21:29 Last Admin: 08/10/19 21:35 Dose: 0.5 mg Sodium Chloride (Normal Saline) 1,000 mls @ 500 mls/hr IV ASDIRECTED [facility] Last Admin: 08/11/19 00:38 Dose: 500 mls/hr Ceftriaxone Sodium 2 gm/ (Sodium Chloride) 50 mls @ 100 mls/hr IV ONETIME ONE Stop: 08/10/19 22:55 Last Admin: 08/10/19 22:38 Dose: 100 mls/hr Sodium Chloride (Normal Saline) 1,000 mls @ 999 mls/hr IV ASDIRECTED [facility] Azithromycin 500 mg/ Sodium (Chloride) 250 mls @ 250 mls/hr IV Q24H [facility] Last Admin: 08/11/19 00:57 Dose: 250 mls/hr Ceftriaxone Sodium 1 gm/ (Sodium Chloride) 50 mls @ 100 mls/hr IV Q24H [facility] Sodium Chloride (Normal Saline) 1,000 mls @ 125 mls/hr IV ASDIRECTED [facility] Last Admin: 08/11/19 03:19 Dose: 125 mls/hr Potassium Chloride 20 meq/Lidocaine HCl 2 ml/ Sodium Chloride 112 mls @ 50 mls/ hr IV Q2H [facility] Stop: 08/11/19 10:59 Last Admin: 08/11/19 13:22 Dose: 50 mls/hr Magnesium Sulfate 2 gm/ Premix 50 mls @ 25 mls/hr IV Q6H [facility] Stop: 08/11/19 15:55 Last Admin: 08/11/19 13:32 Dose: 25 mls/hr Levofloxacin/Dextrose 750 mg/ (Premix) 150 mls @ 100 mls/hr IV Q48H [facility] Last Admin: 08/11/19 12:39 Dose: 100 mls/hr Sodium Chloride (Normal Saline) 1,000 mls @ 999 mls/hr IV .BOLUS ONE Stop: 08/11/19 10:20 Last Admin: 08/11/19 12:55 Dose: 999 mls/hr Vancomycin HCl 1.5 gm/ Sodium (Chloride) 250 mls @ 167 mls/hr IV ONETIME ONE Stop: 08/11/19 11:29 Last Admin: 08/11/19 10:27 Dose: 167 mls/hr Vancomycin HCl 1.25 gm/ Sodium (Chloride) 250 mls @ 150 mls/hr IV Q12H [facility] Meropenem 500 mg/ Sodium (Chloride) 50 mls @ 100 mls/hr IV Q8H [facility] Meropenem 1 gm/ Sodium (Chloride) 100 mls @ 200 mls/hr IV Q12H [facility] Last Admin: 08/12/19 23:49 Dose: 200 mls/hr Vancomycin HCl 1.25 gm/ Sodium (Chloride) 250 mls @ 167 mls/hr IV Q24H [facility] Last Admin: 08/12/19 09:07 Dose: 167 mls/hr Magnesium Sulfate 2 gm/ Premix 50 mls @ 25 mls/hr IV Q6H [facility] Stop: 08/12/19 09:59 Last Admin: 08/12/19 08:03 Dose: 25 mls/hr Potassium Chloride/Sodium Chloride (Normal Saline With 20 Meq Kcl) 1,000 mls @ 25 mls/hr IV ASDIRECTED [facility] Last Admin: 08/12/19 13:24 Dose: 125 mls/hr Diltiazem HCl 100 mg/ Sodium (Chloride) 100 mls @ 5 mls/hr IV TITRATE [facility]; Protocol Last Titration: 08/13/19 04:32 Dose: 2.5 mg/hr, 2.5 mls/hr Levofloxacin/Dextrose 750 mg/ (Premix) 150 mls @ 100 mls/hr IV Q48H [facility] Last Admin: 08/13/19 08:54 Dose: 100 mls/hr Magnesium Sulfate 2 gm/ Premix 50 mls @ 25 mls/hr IV Q6H [facility] Stop: 08/14/19 16:59 Last Admin: 08/14/19 15:09 Dose: 25 mls/hr Insulin Glargine (Lantus Solostar) 30 units SUBCUT BEDTIME [facility] Lisinopril (Prinivil) 20 mg PO DAILY [facility] Last Admin: 08/11/19 08:20 Dose: Not Given Pantoprazole Sodium (Protonix Iv) 40 mg IVPUSH DAILY [facility] Last Admin: 08/11/19 01:35 Dose: 40 mg - Exam General: Reports: Alert, Oriented, Cooperative, No Acute Distress Lungs: Reports: Clear to Auscultation, Normal Respiratory Effort Cardiovascular: Reports: Regular Rate, Regular Rhythm, No Murmurs GI/Abdominal Exam: Soft, Non-Tender, No Organomegaly, No Distention Extremities: Non-Tender, No Pedal Edema
[2019-08-15] MEDS: cefTRIAXone 2 GM in Sodium Chloride 0.9% 50 ML IV SCH (12:01)
== END 2019-08-15 13:30 | disposition home or self-care (01) | DRG 871 ==
LOC: JP.ED 20:47 → JP.MS 23:16 → JP.ICU 08-11 11:42 → JP.MS 08-14 13:33
PROVIDERS: ADMIT Internal Medicine; ATTEND Hospitalist
PROC: 8E0ZXY6 Isolation (ICD-10-PCS; principal; 2019-08-10)
DX: A41.9 Sepsis, unspecified organism (principal); R19.7 Diarrhea, unspecified; J18.9 Pneumonia, unspecified organism; H54.40 Blindness, one eye, unspecified eye; I10 Essential (primary) hypertension; N17.9 Acute kidney failure, unspecified; H54.7 Unspecified visual loss; K21.9 Gastro-esophageal reflux disease without esophagitis; E11.21 Type 2 diabetes mellitus with diabetic nephropathy; E66.9 Obesity, unspecified; F32.9 Major depressive disorder, single episode, unspecified; E53.8 Deficiency of other specified B group vitamins; E55.9 Vitamin D deficiency, unspecified; E03.9 Hypothyroidism, unspecified; Z98.84 Bariatric surgery status; L40.9 Psoriasis, unspecified; E86.0 Dehydration; E87.6 Hypokalemia; Z79.890 Hormone replacement therapy; E83.42 Hypomagnesemia; Z88.8 Allergy status to other drugs, medicaments and biological substances; Z91.048 Other nonmedicinal substance allergy status; Z79.4 Long term (current) use of insulin; Z98.890 Other specified postprocedural states; Z98.49 Cataract extraction status, unspecified eye; Z95.0 Presence of cardiac pacemaker; Z87.891 Personal history of nicotine dependence; Z79.899 Other long term (current) drug therapy; Z20.828 Contact with and (suspected) exposure to other viral communicable diseases
CPT/HCPCS: 36415; 71046 ×2; 80053; 81001; 83605; 83615; 83874; 84145; 84484; 85027; 86140; 87040 ×2; 87077; 87804 ×2; 93005; 93010; 96361; 96365; 96375; 99284; 99285; J0696; J1170; J7030; J7050; 71250; 71250-26; 73660-26-T5; 73660-T5; 73700-RT; 74176; 74176-26; 80048; 82962; 83735; 84132; 85025; 87046; 87493; 87899; 89055; 93306; A9270-GY; C9113; J0456; J1815; J1815-GY; J1956; J2001; J2185; J3370; J3475; J3480; J3490; U0002

== ENCOUNTER 2021-09-17 13:14 | Emergency (ER) | payer MEDICARE, BC, MEDICAID ==
[2021-09-17] MEDS ORDERED: Morphine 4 MG/ML Syringe IVPUSH PRN (14:02)
[2021-09-17] MEDS ORDERED: Nitroglycerin 0.4 MG Tab.SL SL PRN (14:02)
[2021-09-17] MEDS ORDERED: Sodium Chloride 0.9% 10 ML Syringe FLUSH PRN (14:02)
[2021-09-17] MEDS ORDERED: diphenhydrAMINE 50 MG/ML SDV IVPUSH ONE (14:12)
[2021-09-17] MEDS ORDERED: MVI, Adult with Vitamin K 10 ML, Zinc/Copper/Manganese/Selenium 1 ML, Thiamine 200 MG i... IV ONE ×4 (14:30)
[2021-09-17] MEDS ORDERED: Aspirin 81 MG Tab.Chew PO ONE (15:16)
[2021-09-17 17:34] VITALS: BP 102/67; PULSE 72
== END 2021-09-17 19:11 ==
LOC: JP.ED 13:14
DX: R74.8 Abnormal levels of other serum enzymes (principal); K21.9 Gastro-esophageal reflux disease without esophagitis; E11.21 Type 2 diabetes mellitus with diabetic nephropathy; E03.9 Hypothyroidism, unspecified; I10 Essential (primary) hypertension; E66.9 Obesity, unspecified; Z68.29 Body mass index [BMI] 29.0-29.9, adult; Z91.018 Allergy to other foods; Z88.6 Allergy status to analgesic agent; Z91.011 Allergy to milk products; Z79.899 Other long term (current) drug therapy; Z20.822 Contact with and (suspected) exposure to COVID-19
CPT/HCPCS: 36415; 71046; 80053; 83605; 83690; 84484; 85025; 85379; 93005; 93010; 96365; 96366; 96375; 99284; 99285-25; A9270-GY; J1200; J3411; J7120; U0002

== ENCOUNTER 2022-02-12 16:03 | Emergency (ER) | payer MEDICARE, BC, MEDICAID ==
[2022-02-12 16:23] VITALS: BP 123/55; PULSE 74
== END 2022-02-12 18:42 | disposition home or self-care (01) ==
LOC: JP.ED 16:03
DX: S16.1XXA Strain of muscle, fascia and tendon at neck level, initial encounter (principal); S00.83XA Contusion of other part of head, initial encounter; E03.9 Hypothyroidism, unspecified; I10 Essential (primary) hypertension; E11.9 Type 2 diabetes mellitus without complications; E66.9 Obesity, unspecified; Z68.29 Body mass index [BMI] 29.0-29.9, adult; Z88.8 Allergy status to other drugs, medicaments and biological substances; Z88.6 Allergy status to analgesic agent; Z91.011 Allergy to milk products; Z79.899 Other long term (current) drug therapy; W22.8XXA Striking against or struck by other objects, initial encounter
CPT/HCPCS: 70450; 72125; 99283

== ENCOUNTER 2022-09-08 09:54 | Inpatient (IN) | payer MEDICARE, BC, MEDICAID ==
[2022-09-08] MEDS ORDERED: Celecoxib 200 MG Cap PO ONE (10:00)
[2022-09-08] MEDS ORDERED: Dextrose 5%-Lactated Ringers 1,000 ML IV SCH ×2 (10:30→15:30)
[2022-09-08] MEDS ORDERED: Lidocaine 1% with EPINEPHrine 1:100,000 50 ML MDV ONE (11:14)
[2022-09-08] MEDS ORDERED: Bupivacaine 0.5% 50 ML MDV ONE (11:14)
[2022-09-08] MEDS ORDERED: Naloxone 0.4 MG/ML SDV IVPUSH PRN (11:19)
[2022-09-08] MEDS ORDERED: Ondansetron 4 MG/2 ML SDV IVPUSH PRN ×2 (11:19→16:00)
[2022-09-08] MEDS ORDERED: diphenhydrAMINE 50 MG/ML SDV IVPUSH PRN ×2 (11:19→16:00)
[2022-09-08] MEDS ORDERED: HYDROmorphone/Normal Saline 6 MG/30 ML PCA Vial IV PRN (11:19)
[2022-09-08] MEDS ORDERED: diphenhydrAMINE 25 MG Cap PO PRN (11:19)
[2022-09-08] MEDS ORDERED: fentaNYL 250 MCG/5 ML SDV ONE (11:29)
[2022-09-08] MEDS ORDERED: Succinylcholine 200 MG/10 ML MDV ONE (11:30)
[2022-09-08] MEDS ORDERED: Ondansetron 4 MG/2 ML SDV ONE (11:30)
[2022-09-08] MEDS ORDERED: Propofol 200 MG/20 ML SDV ONE (11:30)
[2022-09-08] MEDS ORDERED: Rocuronium 50 MG/5 ML Vial ONE (11:30)
[2022-09-08] MEDS ORDERED: Dexamethasone 4 MG/ML SDV ONE (11:30)
[2022-09-08] MEDS ORDERED: Neostigmine Methylsulfate 1 MG/ML 5 ML Syringe ONE (11:30)
[2022-09-08] MEDS ORDERED: Glycopyrrolate 0.2 MG/ML 5 ML MDV ONE (11:30)
[2022-09-08] MEDS ORDERED: Naloxone 0.4 MG/ML SDV IV PRN (12:00)
[2022-09-08] MEDS ORDERED: ceFAZolin 2 GM in Premix Bag 1 BAG IV ONE (12:00)
[2022-09-08] MEDS ORDERED: Meropenem 500 MG SDV ONE (12:04)
[2022-09-08] MEDS ORDERED: Ketamine 16 MG in Sodium Chloride 0.9% 19.84 ML IV SCH (13:00)
[2022-09-08] MEDS ORDERED: Ketamine 500 MG/5 ML MDV IV SCH (13:00)
[2022-09-08] MEDS ORDERED: Linezolid 600 MG/300 ML Premix Bag IRR ONE (13:03)
[2022-09-08] MEDS ORDERED: Mupirocin Oint 22 GM Tube ONE (14:17)
[2022-09-08] MEDS ORDERED: Glucagon,Human Recombinant 1 MG Vial IM PRN ×2 (15:23→16:00)
[2022-09-08] MEDS ORDERED: 50% Dextrose in Water 50 ML Syringe IVPUSH PRN ×2 (15:23→16:00)
[2022-09-08] MEDS ORDERED: Cyclobenzaprine 10 MG Tab PO PRN (15:27)
[2022-09-08] MEDS ORDERED: Insulin Lispro 100 Unit/ML 3 ML KwikPen SUBCUT ONE (15:30)
[2022-09-08] MEDS ORDERED: Hypromellose 0.3% Ophth Soln 15 ML Bottle EYEBOTH PRN (15:32)
[2022-09-08] MEDS ORDERED: Labetalol 20 MG/4 ML Syringe IVPUSH PRN (16:00)
[2022-09-08] MEDS ORDERED: Metoclopramide 10 MG/2 ML SDV IVPUSH PRN (16:00)
[2022-09-08] MEDS ORDERED: Acetaminophen 500 MG Tab PO PRN (16:00)
[2022-09-08] MEDS ORDERED: hydrOXYzine HCl 50 MG/ML SDV IM PRN (16:00)
[2022-09-08] MEDS: Insulin Lispro 100 Unit/ML 3 ML KwikPen SUBCUT SCH ×2 (16:42→22:45)
[2022-09-08] MEDS ORDERED: MVI, Adult with Vitamin K 10 ML, Thiamine 200 MG, Zinc/Copper/Manganese/Selenium 1 ML i... IV SCH ×4 (17:00)
[2022-09-08] MEDS: Heparin Sodium 5,000 Units/ML Vial SUBCUT SCH (17:34)
[2022-09-08] MEDS ORDERED: Pantoprazole 40 MG Vial IVPUSH SCH (18:00)
[2022-09-08] MEDS: ceFAZolin 2 GM in Premix Bag 1 BAG IV SCH (20:36)
[2022-09-08] MEDS: Acetaminophen 500 MG Tab PO SCH (21:27)
[2022-09-08] MEDS: prednisoLONE Acetate 1% Ophth Susp 5 ML Bottle EYERT SCH (21:28)
[2022-09-08] MEDS: Lactated Ringers 1,000 ML IV SCH (23:02)
[2022-09-09] MEDS: ceFAZolin 2 GM in Premix Bag 1 BAG IV SCH ×3 (04:26→20:29)
[2022-09-09] MEDS: Acetaminophen 500 MG Tab PO SCH ×3 (04:26→20:29)
[2022-09-09] MEDS: Insulin Lispro 100 Unit/ML 3 ML KwikPen SUBCUT SCH ×4 (04:27→22:04)
[2022-09-09 04:44] LABS: BASOPHILS PERCENT AUTO 0.1 % (0.1-1.3); EOSINOPHILS PERCENT AUTO 0.3 % (0.0-5.4); HEMATOCRIT 37.6 % (34.3-46.0); HEMOGLOBIN 11.6 g/dL (11.2-15.5); IMMATURE GRAN ABSOLUTE AUTO 0.04 K/uL (0.00-0.23); IMMATURE GRAN PERCENT AUTO 0.5 % (0.0-0.7); LYMPHOCYTES PERCENT AUTO 10.6 % (11.4-47.7); MEAN CORPUSCULAR HEMOGLOBIN 29.7 pg (31.6-35.5); MEAN CORPUSCULAR HGB CONC 30.9 g/dL (31.6-35.5); MEAN CORPUSCULAR VOLUME 96.2 fL (81.4-99.0); MONOCYTES ABSOLUTE AUTO 0.35 K/uL (0.20-0.90); MONOCYTES PERCENT AUTO 4.6 % (3.3-12.6); NEUTROPHILS ABSOLUTE AUTO 6.34 K/uL (1.0-7.6); NEUTROPHILS PERCENT AUTO 83.9 % (40.0-78.1); PLATELET COUNT,PLT 110 K/uL (130-375); RED BLOOD CELL COUNT 3.91 M/uL (3.77-5.24); WHITE BLOOD CELL COUNT,WBC 7.6 K/uL (3.2-11.0)
[2022-09-09 05:17] LABS: A/G RATIO 0.8 (1.2-2.2); ALANINE AMINOTRANSFERASE,ALT 18 U/L (12-78); ALBUMIN 2.9 g/dL (3.4-5.0); ALKALINE PHOSPHATASE 85 U/L (46-116); ASPARTATE AMNIOTRANSFERASE,AST 26 U/L (15-37); BILIRUBIN TOTAL 0.3 mg/dL (0.2-1.0); BLOOD UREA NITROGEN,BUN 34 mg/dL (7-18); CALCIUM 8.5 mg/dL (8.5-10.1); CARBON DIOXIDE,CO2 21 mmol/L (21-32); CHLORIDE,CL 105 mmol/L (100-108); CREATININE 1.4 mg/dL (0.6-1.0); EST CRCL DRUG DOSING (CG) 29.52 mL/min; ESTIMATED GFR 39 mL/min (>60); GLUCOSE RANDOM 217 mg/dL (74-106); MAGNESIUM 1.7 mg/dL (1.8-2.4); PHOSPHORUS 4.3 mg/dL (2.5-4.9); POTASSIUM,K 5.4 mmol/L (3.6-5.2); PRO B-TYPE NATRIUR PEPT,BNPPRO 713 pg/mL (5-450); PROTEIN TOTAL,TP 6.4 g/dL (6.4-8.2); SODIUM,NA 135 mmol/L (140-148)
[2022-09-09] MEDS: Lactated Ringers 1,000 ML IV SCH (05:21)
[2022-09-09 05:24] LABS: ANION GAP 14.4 mmol/L (5.0-14.0)
[2022-09-09 05:46] LABS: BASOPHILS ABSOLUTE AUTO 0.01 K/uL (0.00-0.10); EOSINOPHILS ABSOLUTE AUTO 0.02 K/uL (0.00-0.40)
[2022-09-09] MEDS: Heparin Sodium 5,000 Units/ML Vial SUBCUT SCH ×2 (06:05→17:57)
[2022-09-09] MEDS: Levothyroxine 100 MCG Tab PO SCH (07:41)
[2022-09-09] MEDS: prednisoLONE Acetate 1% Ophth Susp 5 ML Bottle EYERT SCH ×2 (09:26→20:31)
[2022-09-09] MEDS: Magnesium Sulfate/Water 2 GM/50 ML BAG IV SCH ×3 (09:26→22:03)
[2022-09-09] MEDS: Celecoxib 200 MG Cap PO SCH ×2 (09:26→20:30)
[2022-09-09] MEDS: Docusate Sodium 100 MG Cap PO SCH ×2 (09:27→20:30)
[2022-09-09] MEDS: Bisacodyl 5 MG Tab PO SCH ×2 (09:27→20:30)
[2022-09-09] MEDS: Lisinopril 5 MG Tab PO SCH (09:27)
[2022-09-09] MEDS ORDERED: MVI, Adult with Vitamin K 10 ML, Thiamine 200 MG, Zinc/Copper/Manganese/Selenium 1 ML i... IV SCH ×4 (16:00)
[2022-09-09] MEDS: Pantoprazole 40 MG Tab.CR PO SCH (16:47)
[2022-09-10] MEDS: ceFAZolin 2 GM in Premix Bag 1 BAG IV SCH ×2 (03:59→13:45)
[2022-09-10] MEDS: Magnesium Sulfate/Water 2 GM/50 ML BAG IV SCH ×4 (04:00→21:12)
[2022-09-10] MEDS: Acetaminophen 500 MG Tab PO SCH ×3 (04:01→20:40)
[2022-09-10] MEDS: Insulin Lispro 100 Unit/ML 3 ML KwikPen SUBCUT SCH ×4 (04:14→22:24)
[2022-09-10 04:20] LABS: HEMATOCRIT 31.2 % (34.3-46.0); HEMOGLOBIN 9.7 g/dL (11.2-15.5); MEAN CORPUSCULAR HEMOGLOBIN 29.9 pg (31.6-35.5); MEAN CORPUSCULAR HGB CONC 31.1 g/dL (31.6-35.5); MEAN CORPUSCULAR VOLUME 96.3 fL (81.4-99.0); RED BLOOD CELL COUNT 3.24 M/uL (3.77-5.24); WHITE BLOOD CELL COUNT,WBC 6.3 K/uL (3.2-11.0)
[2022-09-10] MEDS: Lactated Ringers 1,000 ML IV SCH ×2 (04:22→15:44)
[2022-09-10 04:46] LABS: A/G RATIO 0.8 (1.2-2.2); ALANINE AMINOTRANSFERASE,ALT 10 U/L (12-78); ALBUMIN 2.5 g/dL (3.4-5.0); ALKALINE PHOSPHATASE 72 U/L (46-116); ASPARTATE AMNIOTRANSFERASE,AST 18 U/L (15-37); BILIRUBIN TOTAL 0.2 mg/dL (0.2-1.0); BLOOD UREA NITROGEN,BUN 37 mg/dL (7-18); CALCIUM 8.1 mg/dL (8.5-10.1); CARBON DIOXIDE,CO2 26 mmol/L (21-32); CHLORIDE,CL 106 mmol/L (100-108); CREATININE 1.7 mg/dL (0.6-1.0); EST CRCL DRUG DOSING (CG) 24.31 mL/min; ESTIMATED GFR 31 mL/min (>60); GLUCOSE RANDOM 148 mg/dL (74-106); PHOSPHORUS 4.1 mg/dL (2.5-4.9); POTASSIUM,K 4.4 mmol/L (3.6-5.2); PRO B-TYPE NATRIUR PEPT,BNPPRO 928 pg/mL (5-450); PROTEIN TOTAL,TP 5.7 g/dL (6.4-8.2); SODIUM,NA 138 mmol/L (140-148)
[2022-09-10 05:19] LABS: ANION GAP 10.4 mmol/L (5.0-14.0)
[2022-09-10] MEDS: Heparin Sodium 5,000 Units/ML Vial SUBCUT SCH ×2 (06:01→17:23)
[2022-09-10] MEDS ORDERED: DULAGLUTIDE 0.75 MG/0.5 ML SQ SCH (07:45)
[2022-09-10] MEDS ORDERED: HYDROmorphone 2 MG Tab PO PRN (08:20)
[2022-09-10] MEDS: Celecoxib 200 MG Cap PO SCH (08:44)
[2022-09-10] MEDS: Docusate Sodium 100 MG Cap PO SCH ×2 (08:44→20:40)
[2022-09-10] MEDS: Levothyroxine 100 MCG Tab PO SCH (08:44)
[2022-09-10] MEDS: Bisacodyl 5 MG Tab PO SCH ×2 (08:44→20:40)
[2022-09-10] MEDS: prednisoLONE Acetate 1% Ophth Susp 5 ML Bottle EYERT SCH ×2 (08:45→20:41)
[2022-09-10] MEDS: Lisinopril 5 MG Tab PO SCH (08:45)
[2022-09-10] MEDS ORDERED: Cyanocobalamin (Vitamin B12) 1,000 MCG/ML SDV IM ONE (09:00)
[2022-09-10] MEDS ORDERED: Furosemide 20 MG/2 ML VIAL IVPUSH ONE (09:00)
[2022-09-10] MEDS: Pantoprazole 40 MG Tab.CR PO SCH (15:36)
[2022-09-10] MEDS ORDERED: DULAGLUTIDE 1.5 MG/0.5 ML SUBCUT ONE (21:00)
[2022-09-11] MEDS: Lactated Ringers 1,000 ML IV SCH (01:47)
[2022-09-11] MEDS: Insulin Lispro 100 Unit/ML 3 ML KwikPen SUBCUT SCH ×2 (04:31→09:23)
[2022-09-11] MEDS: Magnesium Sulfate/Water 2 GM/50 ML BAG IV SCH (04:33)
[2022-09-11] MEDS: Acetaminophen 500 MG Tab PO SCH (04:33)
[2022-09-11] MEDS: Heparin Sodium 5,000 Units/ML Vial SUBCUT SCH (05:13)
[2022-09-11 07:28] VITALS: BP 131/59; PULSE 69
[2022-09-11] MEDS: Levothyroxine 100 MCG Tab PO SCH (08:09)
[2022-09-11] MEDS: Docusate Sodium 100 MG Cap PO SCH (08:09)
[2022-09-11] MEDS: Bisacodyl 5 MG Tab PO SCH (08:09)
[2022-09-11] MEDS: prednisoLONE Acetate 1% Ophth Susp 5 ML Bottle EYERT SCH (08:10)
[2022-09-11] MEDS: Lisinopril 5 MG Tab PO SCH (08:10)
[2022-09-11] MEDS ORDERED: Mupirocin Oint 22 GM Tube TOP SCH (09:00)
== END 2022-09-11 10:45 | disposition home health service (06) | DRG 329 ==
LOC: JP.SDS 09:54 → JP.MS 16:10
PROVIDERS: ADMIT Surgery; ATTEND Surgery
PROC: 0DS80ZZ Reposition Small Intestine, Open Approach (ICD-10-PCS; principal; 2022-09-08)
PROC: 0WQF0ZZ Repair Abdominal Wall, Open Approach (ICD-10-PCS; 2022-09-08)
PROC: 0WPF0JZ Removal of Synthetic Substitute from Abdominal Wall, Open Approach (ICD-10-PCS; 2022-09-08)
PROC: 0JB80ZZ Excision of Abdomen Subcutaneous Tissue and Fascia, Open Approach (ICD-10-PCS; 2022-09-08)
PROC: 0DB80ZZ Excision of Small Intestine, Open Approach (ICD-10-PCS; 2022-09-08)
PROC: 3E0M05Z Introduction of Adhesion Barrier into Peritoneal Cavity, Open Approach (ICD-10-PCS; 2022-09-08)
DX: K95.89 Other complications of other bariatric procedure (principal); K56.2 Volvulus; N18.4 Chronic kidney disease, stage 4 (severe); M79.3 Panniculitis, unspecified; E11.22 Type 2 diabetes mellitus with diabetic chronic kidney disease; K43.2 Incisional hernia without obstruction or gangrene; Z88.8 Allergy status to other drugs, medicaments and biological substances; Z79.890 Hormone replacement therapy; Z79.52 Long term (current) use of systemic steroids; Z79.899 Other long term (current) drug therapy; Z87.891 Personal history of nicotine dependence; Z90.49 Acquired absence of other specified parts of digestive tract
CPT/HCPCS: 36415; 80053; 82947; 83735; 83880; 84100; 85025; 85027; 88302; 88305; 88307; A9270-GY; C9113; J0131; J0171; J0330; J0690; J1100; J1170; J1644; J1815; J1940; J2020; J2185; J2405; J2704; J2710; J2795; J3010; J3411; J3420; J3475; J3490; J7120; J7121